=== PATIENT | female | born 1930 | race Caucasian/White ===

== ENCOUNTER 2017-07-26 14:08 | Emergency (ER) | payer OTHER ==
[~2017-07-26] VITALS: Ht 162.6 cm; Wt 72.6 kg
[~2017-07-26 14:08] MED LIST: ACEBUTCAFT PO; ACET325 PO; ACIDOPHILUS1 EAC1 PO; ALBU3IS INH; ALBU90OI61 INH; ALEN70 PO; AMLO5 PO; AMOX875 PO; AZIT250 PO; AZIT500 PO; Amox Tr-K Clv1 EAC2; Augmentin 875-1 EACH PO; BENZ100A PO; BUTASPCAF PO; Bactrim Ds Tab1 EACH PO; CEFP200 PO; CEFU500 PO; CITA20 PO; CLOT10 SS; CODBUTACEC PO; COLE1 PO; Citalopram HBr20 MG PO; Colace100 MG PO; DICY20 PO; DIPATR PO; DOCU100 PO; Esgic Tablet1 EACH PO; FAMC500 PO; FERR325 PO; FIORICET; FLUSAL2505 INH; FLUT110OIA IH; FLUT220OIA IH; FLUT220OIA INH; FURO40 PO; Furosemide40 MG PO; GUAI600T33 PO; HYDR1TAB94 PO; HYOS.125 SL; LISI20 PO; LONOX; LOPE2C PO; LORA10ER PO; MEGE40SU PO; MELO7.5 PO; MIRALAX119 GM PO; MULVITMIND PO; MULVITMINF PO; NADO40 PO; NADOLOL; NADOLOL PO; NAPR375 PO; NAPR500 PO; NITR100CA PO; Naproxen500 MG PO; Non-Aspirin Ex500 MG PO; Norco 5-325 Ta1 EACH PO; OMEP20ER PO; OMEP40CA12 PO; ONDA4ODT MM; ONDA8 PO; OXYB5 PO; OXYB5ER PO; POTA20PAC PO; POTCHL20ER PO; PRED10 PO; PRED20 PO; Prilosec Otc20 MG PO; ROBITUSSIN DM PO; SIMV10 PO; SPIR25 PO; SULTRIDS PO; TIOT18 INH; TRAM50 PO; TRAZ100 PO; TRAZ150T57 PO; TUDORZA PRESSAIR INH; Toviaz4 MG PO; Toviaz8 MG PO; VITAMIN D2000 UNIT PO; XARELTO15 MG PO; Zofran Odt4 MG PO
[2017-07-26 14:45] LABS: Source, Urine Clean Catch
[2017-07-26 14:54] LABS: Bilirubin, Urine Neg (Neg); Blood, Urine 1+ (Neg); Glucose Qualitative, Urine Neg (Neg); Ketones, Urine Neg (Neg); Leukocyte Esterase, Urine 3+ (Neg); Nitrite, Urine Neg (Neg); Protein, Urine Neg (Neg); Urobilinogen, Urine NORM (Normal)
[2017-07-26 15:22] LABS: Appearance, Urine Hazy (Clear); Color, Urine Yellow (P-Yellow)
[2017-07-26 15:23] LABS: Transitional Epithelial Cells Few /hpf (0-Rare); White Blood Cells, Urine 50-100 /hpf (0-5)
[2017-07-26 15:24] LABS: Bacteria Mod /hpf; Red Blood Cells, Urine Not Seen /hpf (0-2); Squamous Epithelial Cells Few /hpf (Few)
[2017-07-26 15:44] LABS: BASOPHILS ABSOLUTE AUTO 0.03 K/mm3 (0.00-0.23); BASOPHILS PERCENT AUTO 0 % (0-2); EOSINOPHILS ABSOLUTE AUTO 0.24 K/mm3 (0.00-0.68); EOSINOPHILS PERCENT AUTO 2 % (0-6); Hematocrit 41.8 % (33.0-51.0); Hemoglobin 12.8 g/dL (11.5-16.0); IMMATURE GRAN ABSOLUTE AUTO 0.03 K/mm3 (0.00-0.10); IMMATURE GRAN PERCENT AUTO 0 % (0-1); LYMPHOCYTES PERCENT AUTO 7 % (21-46); MONOCYTES ABSOLUTE AUTO 0.94 K/mm3 (0.16-1.47); MONOCYTES PERCENT AUTO 7 % (4-13); Mean Corpuscular HGB 29.9 pg (26.0-34.0); Mean Corpuscular HGB Conc 30.6 g/dL (31.5-36.5); Mean Corpuscular Volume 98 fL (80-100); NEUTROPHILS ABSOLUTE AUTO 11.24 K/mm3 (1.96-9.15); NEUTROPHILS PERCENT AUTO 83 % (41-73); Platelet Count 303 K/mm3 (150-400); RDW Coefficient Variation 14.8 % (11.7-14.2); RDW Standard Deviation 52.4 fL (35.1-46.3); Red Blood Cell Count 4.28 M/mm3 (3.80-5.20); White Blood Cell Count 13.48 K/mm3 (4.00-11.30)
[2017-07-26 16:06] LABS: Albumin, Blood 3.1 g/dL (3.4-5.0); Albumin/Globulin Ratio 0.8 (0.8-1.8); Bilirubin, Total 0.4 mg/dL (0.1-1.0); Bun/Creatinine Ratio 12.3 (12.0-20.0); Calcium, Blood 9.9 mg/dL (8.5-10.1); Creatinine, Blood 1.14 mg/dL (0.40-1.00); Globulin, Blood 3.9 g/dL (2.2-4.0); Potassium, Blood 4.1 mmol/L (3.5-5.5)
[2017-07-26] MEDS ORDERED: Pantoprazole So40 MG PO (16:23)
[2017-07-26] MEDS ORDERED: VITAMIN D32000 UNIT PO (16:23)
[2017-07-26] MEDS ORDERED: Bactrim Ds Tab1 EACH PO (17:24)
[2017-11-21] MEDS ORDERED: PENVK500 PO (09:29)
== END 2017-07-26 17:43 | disposition home or self-care (01) ==
LOC: ER 14:08
PROVIDERS: Emergency Medicine
DX: N39.0 Urinary tract infection, site not specified (principal); K52.9 Noninfective gastroenteritis and colitis, unspecified; I11.0 Hypertensive heart disease with heart failure; I50.9 Heart failure, unspecified; F32.9 Major depressive disorder, single episode, unspecified; K21.9 Gastro-esophageal reflux disease without esophagitis; J44.9 Chronic obstructive pulmonary disease, unspecified; G43.909 Migraine, unspecified, not intractable, without status migrainosus; Z90.49 Acquired absence of other specified parts of digestive tract; Z79.899 Other long term (current) drug therapy; Z79.891 Long term (current) use of opiate analgesic; F17.200 Nicotine dependence, unspecified, uncomplicated
CPT/HCPCS: 36415; 74176; 80053; 81001; 83690; 85025; 93005; 93010; 96365; 99284; J0696; J7030

== ENCOUNTER 2017-08-01 09:22 | Emergency (ER) | payer OTHER ==
[~2017-08-01] VITALS: Ht 152.4 cm; Wt 68.0 kg
[~2017-08-01 09:22] MED LIST changes: +Pantoprazole So40 MG PO; +VITAMIN D32000 UNIT PO
[2017-08-01 09:55] LABS: Source, Urine Clean Catch
[2017-08-01 10:01] LABS: BASOPHILS ABSOLUTE AUTO 0.02 K/mm3 (0.00-0.23); BASOPHILS PERCENT AUTO 0 % (0-2); EOSINOPHILS ABSOLUTE AUTO 0.01 K/mm3 (0.00-0.68); EOSINOPHILS PERCENT AUTO 0 % (0-6); Hematocrit 38.7 % (33.0-51.0); Hemoglobin 12.4 g/dL (11.5-16.0); IMMATURE GRAN ABSOLUTE AUTO 0.02 K/mm3 (0.00-0.10); IMMATURE GRAN PERCENT AUTO 0 % (0-1); LYMPHOCYTES ABSOLUTE AUTO 0.91 K/mm3 (0.84-5.20); LYMPHOCYTES PERCENT AUTO 17 % (21-46); MONOCYTES ABSOLUTE AUTO 0.76 K/mm3 (0.16-1.47); MONOCYTES PERCENT AUTO 14 % (4-13); Mean Corpuscular HGB 29.8 pg (26.0-34.0); Mean Platelet Volume 11.1 fL (9.1-12.4); NEUTROPHILS ABSOLUTE AUTO 3.73 K/mm3 (1.96-9.15); NEUTROPHILS PERCENT AUTO 68 % (41-73); Platelet Count 242 K/mm3 (150-400); RDW Standard Deviation 50.9 fL (35.1-46.3); Red Blood Cell Count 4.16 M/mm3 (3.80-5.20); White Blood Cell Count 5.45 K/mm3 (4.00-11.30)
[2017-08-01 10:04] LABS: Mean Corpuscular Volume 93 fL (80-100)
[2017-08-01 10:06] LABS: Bilirubin, Urine Neg (Neg); Blood, Urine 1+ (Neg); Glucose Qualitative, Urine Neg (Neg); Ketones, Urine Neg (Neg); Leukocyte Esterase, Urine Neg (Neg); Nitrite, Urine Neg (Neg); Protein, Urine Neg (Neg); Urobilinogen, Urine NORM (Normal)
[2017-08-01 10:09] LABS: Appearance, Urine Clear (Clear); Color, Urine Yellow (P-Yellow)
[2017-08-01 10:12] LABS: Bacteria Not Seen /hpf; Red Blood Cells, Urine 0-2 /hpf (0-2); Squamous Epithelial Cells Not Seen /hpf (Few); White Blood Cells, Urine Not Seen /hpf (0-5)
[2017-08-01 10:20] LABS: Alanine Aminotransfer (ALT/SGP 25 U/L (12-78); Albumin/Globulin Ratio 0.8 (0.8-1.8); Alk Phos 124 U/L (50-136); Anion Gap 7 mmol/L (6-16); Aspartate Aminotrans (AST/SGOT 47 U/L (12-37); Bilirubin, Total 0.1 mg/dL (0.1-1.0); Blood Urea Nitrogen 19 mg/dL (8-24); Bun/Creatinine Ratio 12.2 (12.0-20.0); CO2, Blood 27 mmol/L (21-32); Calcium, Blood 8.6 mg/dL (8.5-10.1); Chloride, Blood 98 mmol/L (98-108); Creatinine, Blood 1.56 mg/dL (0.40-1.00); Globulin, Blood 3.8 g/dL (2.2-4.0); Glomerular Filtration Rate 33 (60-); Glucose, Blood 95 mg/dL (70-99); Potassium, Blood 4.3 mmol/L (3.5-5.5); Sodium, Blood 132 mmol/L (136-145); Total Protein, Blood 6.8 g/dL (6.4-8.2); Troponin I <0.015 ng/mL (0.000-0.040)
[2017-08-01] MEDS ORDERED: Zofran4 MG PO (10:51)
[2017-11-21] MEDS ORDERED: PENVK500 PO (09:29)
== END 2017-08-01 11:46 | disposition home or self-care (01) ==
LOC: ER 09:22
PROVIDERS: Emergency Medicine
DX: R11.2 Nausea with vomiting, unspecified (principal); R53.1 Weakness; R53.83 Other fatigue; M79.7 Fibromyalgia; K21.9 Gastro-esophageal reflux disease without esophagitis; J44.9 Chronic obstructive pulmonary disease, unspecified; D64.9 Anemia, unspecified; I11.0 Hypertensive heart disease with heart failure; I50.9 Heart failure, unspecified; F32.9 Major depressive disorder, single episode, unspecified; F17.200 Nicotine dependence, unspecified, uncomplicated; Z90.49 Acquired absence of other specified parts of digestive tract
CPT/HCPCS: 36415; 71045; 80053; 81001; 83880; 84484; 85025; 93005; 93010; 96361; 96374; 99284; J2405; J7030; P9612

== ENCOUNTER 2017-08-29 16:07 | Inpatient (IN) | payer OTHER ==
[~2017-08-29] VITALS: Ht 157.5 cm; Wt 70.1 kg
[~2017-08-29 16:07] MED LIST changes: +Zofran4 MG PO
[2017-08-29 16:43] LABS: BASOPHILS ABSOLUTE AUTO 0.08 K/mm3 (0.00-0.23); BASOPHILS PERCENT AUTO 0 % (0-2); EOSINOPHILS ABSOLUTE AUTO 0.01 K/mm3 (0.00-0.68); EOSINOPHILS PERCENT AUTO 0 % (0-6); Hematocrit 37.3 % (33.0-51.0); Hemoglobin 11.7 g/dL (11.5-16.0); IMMATURE GRAN ABSOLUTE AUTO 0.38 K/mm3 (0.00-0.10); IMMATURE GRAN PERCENT AUTO 1 % (0-1); LYMPHOCYTES ABSOLUTE AUTO 1.21 K/mm3 (0.84-5.20); LYMPHOCYTES PERCENT AUTO 4 % (21-46); MONOCYTES ABSOLUTE AUTO 1.93 K/mm3 (0.16-1.47); MONOCYTES PERCENT AUTO 6 % (4-13); Mean Corpuscular HGB 29.7 pg (26.0-34.0); Mean Corpuscular HGB Conc 31.4 g/dL (31.5-36.5); Mean Corpuscular Volume 95 fL (80-100); Mean Platelet Volume 10.5 fL (9.1-12.4); NEUTROPHILS ABSOLUTE AUTO 27.76 K/mm3 (1.96-9.15); NEUTROPHILS PERCENT AUTO 88 % (41-73); Platelet Count 286 K/mm3 (150-400); RDW Coefficient Variation 14.7 % (11.7-14.2); RDW Standard Deviation 51.1 fL (35.1-46.3); Red Blood Cell Count 3.94 M/mm3 (3.80-5.20); White Blood Cell Count 31.37 K/mm3 (4.00-11.30)
[2017-08-29 17:07] LABS: Alanine Aminotransfer (ALT/SGP 23 U/L (12-78); Albumin, Blood 2.6 g/dL (3.4-5.0); Albumin/Globulin Ratio 0.6 (0.8-1.8); Alk Phos 193 U/L (50-136); Anion Gap 11 mmol/L (6-16); Aspartate Aminotrans (AST/SGOT 39 U/L (12-37); Bilirubin, Total 0.6 mg/dL (0.1-1.0); Blood Urea Nitrogen 14 mg/dL (8-24); Bun/Creatinine Ratio 12.2 (12.0-20.0); CO2, Blood 26 mmol/L (21-32); Calcium, Blood 9.7 mg/dL (8.5-10.1); Chloride, Blood 98 mmol/L (98-108); Creatinine, Blood 1.15 mg/dL (0.40-1.00); Globulin, Blood 4.5 g/dL (2.2-4.0); Glomerular Filtration Rate 47 (60-); Glucose, Blood 110 mg/dL (70-99); Sodium, Blood 135 mmol/L (136-145); Total Protein, Blood 7.1 g/dL (6.4-8.2); Troponin I <0.015 ng/mL (0.000-0.040)
[2017-08-29 17:47] LABS: PCO2 Arterial 40.8 mmHg (35-45); PO2 Arterial 65.6 mmHg (80-100); pH Blood Arterial 7.47 (7.35-7.45)
[2017-08-29 18:32] LABS: International Normalized Ratio 1.75; Prothrombin Time Results 18.5 Sec (9.7-11.5)
[2017-08-29 23:54] LABS: Source, Urine Clean Catch
[2017-08-29 23:58] LABS: Bilirubin, Urine Neg (Neg); Blood, Urine Neg (Neg); Glucose Qualitative, Urine Neg (Neg); Ketones, Urine Neg (Neg); Leukocyte Esterase, Urine 1+ (Neg); Nitrite, Urine Pos (Neg); Protein, Urine Neg (Neg); Specific Gravity, Urine 1.015 (1.003-1.022); Urobilinogen, Urine NORM (Normal)
[2017-08-30 00:15] LABS: Influenza A Negative (NEGATIVE); Influenza B Negative (NEGATIVE)
[2017-08-30 00:47] LABS: Appearance, Urine Hazy (Clear); Color, Urine Yellow (P-Yellow); Red Blood Cells, Urine 0-2 /hpf (0-2)
[2017-08-30 00:48] LABS: Bacteria Many /hpf; Squamous Epithelial Cells Rare /hpf (Few)
[2017-08-31 05:31] LABS: BASOPHILS ABSOLUTE AUTO 0.02 K/mm3 (0.00-0.23); BASOPHILS PERCENT AUTO 0 % (0-2); EOSINOPHILS PERCENT AUTO 0 % (0-6); Hematocrit 29.4 % (33.0-51.0); Hemoglobin 9.3 g/dL (11.5-16.0); IMMATURE GRAN ABSOLUTE AUTO 0.19 K/mm3 (0.00-0.10); IMMATURE GRAN PERCENT AUTO 1 % (0-1); LYMPHOCYTES ABSOLUTE AUTO 0.61 K/mm3 (0.84-5.20); LYMPHOCYTES PERCENT AUTO 4 % (21-46); MONOCYTES PERCENT AUTO 2 % (4-13); Mean Corpuscular HGB Conc 31.6 g/dL (31.5-36.5); Mean Corpuscular Volume 95 fL (80-100); Mean Platelet Volume 10.9 fL (9.1-12.4); NEUTROPHILS ABSOLUTE AUTO 15.74 K/mm3 (1.96-9.15); NEUTROPHILS PERCENT AUTO 93 % (41-73); Platelet Count 236 K/mm3 (150-400); RDW Coefficient Variation 15.2 % (11.7-14.2); RDW Standard Deviation 52.2 fL (35.1-46.3); White Blood Cell Count 16.86 K/mm3 (4.00-11.30)
[2017-08-31 05:59] LABS: Creatinine, Blood 1.05 mg/dL (0.40-1.00); Potassium, Blood 4.2 mmol/L (3.5-5.5)
[2017-08-31 06:00] LABS: Calcium, Blood 8.6 mg/dL (8.5-10.1)
[2017-09-02 05:23] LABS: BASOPHILS ABSOLUTE AUTO 0.04 K/mm3 (0.00-0.23); BASOPHILS PERCENT AUTO 0 % (0-2); EOSINOPHILS PERCENT AUTO 0 % (0-6); Hemoglobin 9.7 g/dL (11.5-16.0); IMMATURE GRAN ABSOLUTE AUTO 0.33 K/mm3 (0.00-0.10); IMMATURE GRAN PERCENT AUTO 3 % (0-1); LYMPHOCYTES ABSOLUTE AUTO 0.79 K/mm3 (0.84-5.20); LYMPHOCYTES PERCENT AUTO 7 % (21-46); MONOCYTES ABSOLUTE AUTO 1.06 K/mm3 (0.16-1.47); MONOCYTES PERCENT AUTO 9 % (4-13); Mean Corpuscular HGB 29.8 pg (26.0-34.0); Mean Corpuscular HGB Conc 30.3 g/dL (31.5-36.5); Mean Corpuscular Volume 99 fL (80-100); Mean Platelet Volume 10.7 fL (9.1-12.4); NEUTROPHILS PERCENT AUTO 82 % (41-73); Platelet Count 255 K/mm3 (150-400); RDW Coefficient Variation 15.4 % (11.7-14.2); RDW Standard Deviation 55.3 fL (35.1-46.3); Red Blood Cell Count 3.25 M/mm3 (3.80-5.20); White Blood Cell Count 12.22 K/mm3 (4.00-11.30)
[2017-09-02 06:04] LABS: Calcium, Blood 8.7 mg/dL (8.5-10.1); Potassium, Blood 3.9 mmol/L (3.5-5.5)
[2017-09-04 09:11] LABS: Hematocrit 34.6 % (33.0-51.0); Hemoglobin 10.8 g/dL (11.5-16.0); Mean Corpuscular HGB 29.8 pg (26.0-34.0); Mean Corpuscular HGB Conc 31.2 g/dL (31.5-36.5); Mean Platelet Volume 10.3 fL (9.1-12.4); NRBC ABSOLUTE 0.02 K/mm3 (0.00-0.02); NRBC Auto 0.1 /100 WBC (0.0-0.2); Platelet Count 392 K/mm3 (150-400); RDW Coefficient Variation 14.7 % (11.7-14.2); RDW Standard Deviation 51.2 fL (35.1-46.3); Red Blood Cell Count 3.63 M/mm3 (3.80-5.20); White Blood Cell Count 18.73 K/mm3 (4.00-11.30)
[2017-09-04 09:16] LABS: Mean Corpuscular Volume 95 fL (80-100)
[2017-09-04] MEDS ORDERED: ALBU90OI6 INH (11:48)
[2017-09-04] MEDS ORDERED: AZIT500 PO (12:15)
[2017-09-04] MEDS ORDERED: BAYER CHEWABLE81 MG PO (12:17)
[2017-09-04] MEDS ORDERED: BENZ100A PO (12:18)
[2017-09-04] MEDS ORDERED: CEFTIN PO (12:20)
[2017-09-04] MEDS ORDERED: BUDE.5 NEB (12:23)
[2017-09-04] MEDS ORDERED: PREDNISONE PO (12:29)
[2017-11-21] MEDS ORDERED: PENVK500 PO (09:29)
== END 2017-09-04 13:33 | disposition home or self-care (01) | DRG 871 ==
LOC: ER 16:07 → PCU 19:21
PROVIDERS: Family Medicine; Internal Medicine; Physician Assistant
PROC: 5A09457 Assistance with Respiratory Ventilation, 24-96 Consecutive Hours, Continuous Positive Airway Pressure (ICD-10-PCS; principal; 2017-09-01)
DX: A41.9 Sepsis, unspecified organism (principal); J18.9 Pneumonia, unspecified organism; J96.21 Acute and chronic respiratory failure with hypoxia; I13.0 Hypertensive heart and chronic kidney disease with heart failure and stage 1 through stage 4 chronic kidney disease, or unspecified chronic kidney disease; J44.0 Chronic obstructive pulmonary disease with (acute) lower respiratory infection; I50.32 Chronic diastolic (congestive) heart failure; Z99.81 Dependence on supplemental oxygen; J44.1 Chronic obstructive pulmonary disease with (acute) exacerbation; N18.3 Chronic kidney disease, stage 3 (moderate); D63.1 Anemia in chronic kidney disease; G89.4 Chronic pain syndrome; F41.9 Anxiety disorder, unspecified; F32.9 Major depressive disorder, single episode, unspecified; M79.7 Fibromyalgia; K21.9 Gastro-esophageal reflux disease without esophagitis; G47.33 Obstructive sleep apnea (adult) (pediatric); G43.909 Migraine, unspecified, not intractable, without status migrainosus; G44.89 Other headache syndrome; F17.200 Nicotine dependence, unspecified, uncomplicated; Z86.718 Personal history of other venous thrombosis and embolism; Z88.5 Allergy status to narcotic agent; Z88.8 Allergy status to other drugs, medicaments and biological substances; Z79.82 Long term (current) use of aspirin; Z79.01 Long term (current) use of anticoagulants; Z79.899 Other long term (current) drug therapy
CPT/HCPCS: 36415; 36600; 71045; 71046; 74176; 80048; 80053; 81001; 82803; 83605; 83880; 84484; 85025; 85027; 85610; 87040; 87804; 93005; 93010; 94640; 94660; 94667; 94762; 97110; 97163; 97530; 99285; G8978; G8979; J0456; J0696; J2060; J2930; J7030; J7050; Q2038

== ENCOUNTER 2017-11-18 13:53 | Emergency (ER) | payer OTHER ==
[~2017-11-18] VITALS: Ht 152.4 cm; Wt 73.0 kg
[~2017-11-18 13:53] MED LIST changes: +ALBU90OI6 INH; +BAYER CHEWABLE81 MG PO; +BUDE.5 NEB; +CEFTIN PO; +PREDNISONE PO
[2017-11-18 15:27] LABS: Source, Urine Voided
[2017-11-18 15:36] LABS: BASOPHILS PERCENT AUTO 1 % (0-2); EOSINOPHILS ABSOLUTE AUTO 0.52 K/mm3 (0.00-0.68); EOSINOPHILS PERCENT AUTO 6 % (0-6); Hematocrit 38.9 % (33.0-51.0); Hemoglobin 12.2 g/dL (11.5-16.0); IMMATURE GRAN ABSOLUTE AUTO 0.05 K/mm3 (0.00-0.10); IMMATURE GRAN PERCENT AUTO 1 % (0-1); LYMPHOCYTES ABSOLUTE AUTO 2.81 K/mm3 (0.84-5.20); LYMPHOCYTES PERCENT AUTO 32 % (21-46); MONOCYTES ABSOLUTE AUTO 0.86 K/mm3 (0.16-1.47); MONOCYTES PERCENT AUTO 10 % (4-13); Mean Corpuscular HGB 29.8 pg (26.0-34.0); Mean Corpuscular HGB Conc 31.4 g/dL (31.5-36.5); Mean Corpuscular Volume 95 fL (80-100); Mean Platelet Volume 10.7 fL (9.1-12.4); NEUTROPHILS ABSOLUTE AUTO 4.54 K/mm3 (1.96-9.15); NEUTROPHILS PERCENT AUTO 51 % (41-73); Platelet Count 335 K/mm3 (150-400); RDW Coefficient Variation 13.7 % (11.7-14.2); RDW Standard Deviation 47.5 fL (35.1-46.3); Red Blood Cell Count 4.09 M/mm3 (3.80-5.20); White Blood Cell Count 8.88 K/mm3 (4.00-11.30)
[2017-11-18 15:50] LABS: Appearance, Urine Hazy (Clear); Bilirubin, Urine Neg (Neg); Blood, Urine Neg (Neg); Color, Urine Yellow (P-Yellow); Glucose Qualitative, Urine Neg (Neg); Ketones, Urine Neg (Neg); Leukocyte Esterase, Urine 3+ (Neg); Nitrite, Urine Neg (Neg); Protein, Urine Neg (Neg); Specific Gravity, Urine 1.015 (1.003-1.022); Urobilinogen, Urine NORM (Normal)
[2017-11-18 15:56] LABS: Squamous Epithelial Cells Few /hpf (Few); White Blood Cells, Urine 25-50 /hpf (0-5)
[2017-11-18 15:57] LABS: Bacteria Mod /hpf
[2017-11-18 16:01] LABS: Albumin, Blood 3.5 g/dL (3.4-5.0); Albumin/Globulin Ratio 0.9 (0.8-1.8); Bilirubin, Total 0.2 mg/dL (0.1-1.0); Bun/Creatinine Ratio 21.6 (12.0-20.0); Calcium, Blood 10.5 mg/dL (8.5-10.1); Creatinine, Blood 1.85 mg/dL (0.40-1.00); Potassium, Blood 4.9 mmol/L (3.5-5.5); Total Protein, Blood 7.5 g/dL (6.4-8.2)
[2017-11-21] MEDS ORDERED: PENVK500 PO (09:29)
== END 2017-11-18 19:30 | disposition home or self-care (01) ==
LOC: ER 13:53
PROVIDERS: Nurse Practitioner Family
DX: N39.0 Urinary tract infection, site not specified (principal); E86.0 Dehydration; Z88.5 Allergy status to narcotic agent; Z88.8 Allergy status to other drugs, medicaments and biological substances; Z88.1 Allergy status to other antibiotic agents; Z79.899 Other long term (current) drug therapy; Z79.891 Long term (current) use of opiate analgesic; I11.0 Hypertensive heart disease with heart failure; I50.9 Heart failure, unspecified; G43.909 Migraine, unspecified, not intractable, without status migrainosus; F32.9 Major depressive disorder, single episode, unspecified; Z87.891 Personal history of nicotine dependence
CPT/HCPCS: 36415; 71046; 80053; 81001; 83880; 85025; 87086; 93005; 93010; 96361; 96374; 99283; J0696; J7030

== ENCOUNTER → 2018-03-03 | Outpatient (CLI) | payer OTHER ==
[~2018-03-03] MED LIST changes: +PENVK500 PO
== END | disposition home or self-care (01) ==
LOC: LAB SHORT 17:33 → LAB 17:33
DX: R41.82 Altered mental status, unspecified (principal)
CPT/HCPCS: 87086

== ENCOUNTER 2018-03-11 07:48 | Emergency (ER) | payer OTHER ==
[~2018-03-11] VITALS: Ht 152.4 cm; Wt 70.3 kg
[2018-03-11] MEDS ORDERED: PANT40 PO (08:26)
[2018-03-11] MEDS ORDERED: Spironolactone25 MG PO (08:27)
[2018-03-11] MEDS ORDERED: CRANBERRY250 MG PO (08:28)
[2018-03-11] MEDS ORDERED: LORATADINE10 MG PO (08:28)
[2018-03-11] MEDS ORDERED: FLUT1DIS5 INH (08:29)
[2018-03-11] MEDS ORDERED: MIRALAX17 GM PO (08:29)
[2018-03-11] MEDS ORDERED: ISOSORBIDE DINI PO (08:30)
[2018-03-11] MEDS ORDERED: GABA100 PO (08:30)
[2018-03-11] MEDS ORDERED: ATOR10 PO (08:30)
[2018-03-11] MEDS ORDERED: ONDA4 PO (08:32)
[2018-03-11 09:09] LABS: BASOPHILS ABSOLUTE AUTO 0.07 K/mm3 (0.00-0.23); BASOPHILS PERCENT AUTO 0 % (0-2); EOSINOPHILS ABSOLUTE AUTO 0.43 K/mm3 (0.00-0.68); EOSINOPHILS PERCENT AUTO 3 % (0-6); Hematocrit 38.8 % (33.0-51.0); IMMATURE GRAN ABSOLUTE AUTO 0.07 K/mm3 (0.00-0.10); IMMATURE GRAN PERCENT AUTO 0 % (0-1); LYMPHOCYTES ABSOLUTE AUTO 1.43 K/mm3 (0.84-5.20); LYMPHOCYTES PERCENT AUTO 9 % (21-46); MONOCYTES ABSOLUTE AUTO 1.12 K/mm3 (0.16-1.47); MONOCYTES PERCENT AUTO 7 % (4-13); Mean Corpuscular HGB 29.2 pg (26.0-34.0); Mean Corpuscular HGB Conc 30.9 g/dL (31.5-36.5); Mean Corpuscular Volume 94 fL (80-100); Mean Platelet Volume 11.1 fL (9.1-12.4); NEUTROPHILS ABSOLUTE AUTO 12.94 K/mm3 (1.96-9.15); NEUTROPHILS PERCENT AUTO 81 % (41-73); Platelet Count 234 K/mm3 (150-400); RDW Coefficient Variation 15.1 % (11.7-14.2); RDW Standard Deviation 52.8 fL (35.1-46.3); Red Blood Cell Count 4.11 M/mm3 (3.80-5.20); White Blood Cell Count 16.06 K/mm3 (4.00-11.30)
[2018-03-11 09:21] LABS: International Normalized Ratio 1.1; Prothrombin Time Results 11.3 Sec (9.7-11.5)
[2018-03-11 09:22] LABS: Anion Gap 6 mmol/L (6-16); Blood Urea Nitrogen 39 mg/dL (8-24); Bun/Creatinine Ratio 26.4 (12.0-20.0); CO2, Blood 26 mmol/L (21-32); Chloride, Blood 105 mmol/L (98-108); Creatinine, Blood 1.48 mg/dL (0.40-1.00); Glomerular Filtration Rate 35 (60-); Glucose, Blood 93 mg/dL (70-99); Potassium, Blood 5.1 mmol/L (3.5-5.5); Sodium, Blood 137 mmol/L (136-145); Troponin I <0.015 ng/mL (0.000-0.040)
[2018-03-11 09:57] LABS: Source, Urine Catheter
[2018-03-11 10:08] LABS: Bilirubin, Urine Neg (Neg); Blood, Urine Neg (Neg); Glucose Qualitative, Urine Neg (Neg); Ketones, Urine Neg (Neg); Leukocyte Esterase, Urine 1+ (Neg); Nitrite, Urine Neg (Neg); Protein, Urine Neg (Neg); Specific Gravity, Urine 1.015 (1.003-1.022); Urobilinogen, Urine NORM (Normal)
[2018-03-11 10:20] LABS: Appearance, Urine Hazy (Clear); Color, Urine Yellow (P-Yellow)
[2018-03-11 10:22] LABS: Bacteria Few /hpf; Mucus Light (0-Heavy); Red Blood Cells, Urine 0-2 /hpf (0-2); Squamous Epithelial Cells Few /hpf (Few)
[2018-03-11] MEDS ORDERED: Motion Sickness25 M1 PO (10:49)
[2018-03-11] MEDS ORDERED: Macrobid 100 M100 MG PO (10:49)
== END 2018-03-11 11:22 | disposition home or self-care (01) ==
LOC: ER 07:48
PROVIDERS: Emergency Medicine
DX: R42 Dizziness and giddiness (principal); N39.0 Urinary tract infection, site not specified; Z88.5 Allergy status to narcotic agent; Z88.8 Allergy status to other drugs, medicaments and biological substances; Z88.1 Allergy status to other antibiotic agents; Z79.899 Other long term (current) drug therapy; K21.9 Gastro-esophageal reflux disease without esophagitis; G43.909 Migraine, unspecified, not intractable, without status migrainosus; J44.9 Chronic obstructive pulmonary disease, unspecified; I11.0 Hypertensive heart disease with heart failure; I50.9 Heart failure, unspecified; F32.9 Major depressive disorder, single episode, unspecified; F17.210 Nicotine dependence, cigarettes, uncomplicated
CPT/HCPCS: 36415; 71046; 80048; 81001; 84484; 85025; 85610; 87077; 87086; 87186; 93005; 93010; 96360; 99285-25; J7030

== ENCOUNTER 2018-05-29 15:55 | Inpatient (IN) | payer OTHER ==
[~2018-05-29] VITALS: Ht 152.4 cm; Wt 74.2 kg
[~2018-05-29 15:55] MED LIST changes: +ATOR10 PO; +CRANBERRY250 MG PO; +FLUT1DIS5 INH; +GABA100 PO; +ISOSORBIDE DINI PO; +LORATADINE10 MG PO; +MIRALAX17 GM PO; +Macrobid 100 M100 MG PO; +Motion Sickness25 M1 PO; +ONDA4 PO; +PANT40 PO; +Spironolactone25 MG PO
[2018-05-29] MEDS ORDERED: MULTI VITAMIN1 EACH PO (16:30)
[2018-05-29] MEDS ORDERED: BIOTIN5000 MC1 PO (16:33)
[2018-05-29 16:53] LABS: BASOPHILS ABSOLUTE AUTO 0.06 K/mm3 (0.00-0.23); BASOPHILS PERCENT AUTO 0 % (0-2); EOSINOPHILS ABSOLUTE AUTO 0.11 K/mm3 (0.00-0.68); EOSINOPHILS PERCENT AUTO 0 % (0-6); Hematocrit 36.5 % (33.0-51.0); Hemoglobin 11.4 g/dL (11.5-16.0); IMMATURE GRAN ABSOLUTE AUTO 0.13 K/mm3 (0.00-0.10); IMMATURE GRAN PERCENT AUTO 1 % (0-1); LYMPHOCYTES ABSOLUTE AUTO 1.02 K/mm3 (0.84-5.20); LYMPHOCYTES PERCENT AUTO 4 % (21-46); MONOCYTES ABSOLUTE AUTO 1.68 K/mm3 (0.16-1.47); MONOCYTES PERCENT AUTO 7 % (4-13); Mean Corpuscular HGB 29.8 pg (26.0-34.0); Mean Corpuscular HGB Conc 31.2 g/dL (31.5-36.5); Mean Corpuscular Volume 96 fL (80-100); Mean Platelet Volume 11.1 fL (9.1-12.4); NEUTROPHILS ABSOLUTE AUTO 21.71 K/mm3 (1.96-9.15); NEUTROPHILS PERCENT AUTO 88 % (41-73); Platelet Count 240 K/mm3 (150-400); RDW Coefficient Variation 15.2 % (11.7-14.2); RDW Standard Deviation 53.9 fL (35.1-46.3); Red Blood Cell Count 3.82 M/mm3 (3.80-5.20); White Blood Cell Count 24.71 K/mm3 (4.00-11.30)
[2018-05-29 17:16] LABS: Albumin, Blood 2.7 g/dL (3.4-5.0); Albumin/Globulin Ratio 0.6 (0.8-1.8); Bilirubin, Total 0.3 mg/dL (0.1-1.0); Bun/Creatinine Ratio 17.9 (12.0-20.0); Calcium, Blood 9.1 mg/dL (8.5-10.1); Creatinine, Blood 1.45 mg/dL (0.40-1.00); Globulin, Blood 4.4 g/dL (2.2-4.0); Total Protein, Blood 7.1 g/dL (6.4-8.2)
[2018-05-29] MEDS ORDERED: FLUT1DIS5 INH (20:50)
[2018-05-29] MEDS ORDERED: Hair, Skin & N1 EACH PO (20:57)
[2018-05-29] MEDS ORDERED: Lomotil Tablet1 EACH PO (20:57)
[2018-05-30 05:22] LABS: BASOPHILS ABSOLUTE AUTO 0.02 K/mm3 (0.00-0.23); BASOPHILS PERCENT AUTO 0 % (0-2); EOSINOPHILS PERCENT AUTO 0 % (0-6); Hematocrit 36.9 % (33.0-51.0); Hemoglobin 11.2 g/dL (11.5-16.0); IMMATURE GRAN ABSOLUTE AUTO 0.16 K/mm3 (0.00-0.10); IMMATURE GRAN PERCENT AUTO 1 % (0-1); LYMPHOCYTES ABSOLUTE AUTO 0.93 K/mm3 (0.84-5.20); LYMPHOCYTES PERCENT AUTO 5 % (21-46); MONOCYTES ABSOLUTE AUTO 0.21 K/mm3 (0.16-1.47); MONOCYTES PERCENT AUTO 1 % (4-13); Mean Corpuscular HGB 29.4 pg (26.0-34.0); Mean Corpuscular HGB Conc 30.4 g/dL (31.5-36.5); Mean Corpuscular Volume 97 fL (80-100); NEUTROPHILS ABSOLUTE AUTO 17.83 K/mm3 (1.96-9.15); NEUTROPHILS PERCENT AUTO 93 % (41-73); Platelet Count 250 K/mm3 (150-400); RDW Coefficient Variation 15.3 % (11.7-14.2); RDW Standard Deviation 54.6 fL (35.1-46.3); Red Blood Cell Count 3.81 M/mm3 (3.80-5.20); White Blood Cell Count 19.15 K/mm3 (4.00-11.30)
[2018-05-30 06:07] LABS: Albumin, Blood 2.6 g/dL (3.4-5.0); Albumin/Globulin Ratio 0.6 (0.8-1.8); Bilirubin, Total 0.3 mg/dL (0.1-1.0); Calcium, Blood 9.7 mg/dL (8.5-10.1); Creatinine, Blood 1.45 mg/dL (0.40-1.00); Globulin, Blood 4.6 g/dL (2.2-4.0); Magnesium, Blood 1.9 mg/dL (1.6-2.4); Potassium, Blood 4.7 mmol/L (3.5-5.5); Total Protein, Blood 7.2 g/dL (6.4-8.2)
[2018-05-31] MEDS ORDERED: AZIT500 PO (11:11)
[2018-05-31] MEDS ORDERED: GUAI600T33 PO (11:15)
[2018-05-31] MEDS ORDERED: DELTASONE20 MG PO (11:17)
== END 2018-05-31 13:51 | disposition home or self-care (01) | DRG 189 ==
LOC: ER 15:55 → MEDS 18:38
PROVIDERS: Emergency Medicine; Internal Medicine
DX: J96.21 Acute and chronic respiratory failure with hypoxia (principal); J44.1 Chronic obstructive pulmonary disease with (acute) exacerbation; I50.32 Chronic diastolic (congestive) heart failure; I13.0 Hypertensive heart and chronic kidney disease with heart failure and stage 1 through stage 4 chronic kidney disease, or unspecified chronic kidney disease; K58.9 Irritable bowel syndrome, unspecified; Z99.81 Dependence on supplemental oxygen; K21.9 Gastro-esophageal reflux disease without esophagitis; G43.909 Migraine, unspecified, not intractable, without status migrainosus; M79.7 Fibromyalgia; G47.33 Obstructive sleep apnea (adult) (pediatric); D72.829 Elevated white blood cell count, unspecified; N18.3 Chronic kidney disease, stage 3 (moderate); F41.8 Other specified anxiety disorders
CPT/HCPCS: 36415; 71046; 80053; 83605; 83735; 84145; 85025; 90686; 93005; 93010; 93306; 94640; 94762; 96374; 96375; 99285-25; J2543; J2930

== ENCOUNTER 2018-07-10 02:39 | Inpatient (IN) | payer OTHER ==
[~2018-07-10] VITALS: Ht 152.4 cm; Wt 75.5 kg
[~2018-07-10 02:39] MED LIST changes: +BIOTIN5000 MC1 PO; +DELTASONE20 MG PO; +Hair, Skin & N1 EACH PO; +Lomotil Tablet1 EACH PO; +MULTI VITAMIN1 EACH PO
[2018-07-10] MEDS ORDERED: TIOT18 INH (02:49)
[2018-07-10 03:12] LABS: Source, Urine Catheter
[2018-07-10 03:19] LABS: Appearance, Urine Hazy (Clear); Bilirubin, Urine Neg (Neg); Blood, Urine 1+ (Neg); Color, Urine Yellow (P-Yellow); Glucose Qualitative, Urine Neg (Neg); Ketones, Urine Neg (Neg); Leukocyte Esterase, Urine 2+ (Neg); Nitrite, Urine Pos (Neg); Protein, Urine 1+ (Neg); Specific Gravity, Urine 1.015 (1.003-1.022); Urobilinogen, Urine NORM (Normal)
[2018-07-10 03:26] LABS: Bacteria Many /hpf; Red Blood Cells, Urine Rare /hpf (0-2); Squamous Epithelial Cells Not Seen /hpf (Few)
[2018-07-10 03:51] LABS: Hemoglobin 11.4 g/dL (11.5-16.0); Mean Corpuscular HGB 29.6 pg (26.0-34.0); Mean Corpuscular Volume 99 fL (80-100); Mean Platelet Volume 10.3 fL (9.1-12.4); Platelet Count 313 K/mm3 (150-400); RDW Coefficient Variation 16.8 % (11.7-14.2); Red Blood Cell Count 3.85 M/mm3 (3.80-5.20); White Blood Cell Count 33.38 K/mm3 (4.00-11.30)
[2018-07-10 04:00] LABS: Alanine Aminotransfer (ALT/SGP 25 U/L (12-78); Albumin, Blood 2.1 g/dL (3.4-5.0); Albumin/Globulin Ratio 0.4 (0.8-1.8); Alk Phos 280 U/L (50-136); Anion Gap 9 mmol/L (6-16); Aspartate Aminotrans (AST/SGOT 41 U/L (12-37); Bilirubin, Total 0.4 mg/dL (0.1-1.0); Blood Urea Nitrogen 25 mg/dL (8-24); Bun/Creatinine Ratio 16.2 (12.0-20.0); CO2, Blood 21 mmol/L (21-32); Calcium, Blood 8.3 mg/dL (8.5-10.1); Chloride, Blood 107 mmol/L (98-108); Creatinine, Blood 1.54 mg/dL (0.40-1.00); Globulin, Blood 4.8 g/dL (2.2-4.0); Glomerular Filtration Rate 34 (60-); Glucose, Blood 185 mg/dL (70-99); Magnesium, Blood 1.9 mg/dL (1.6-2.4); Potassium, Blood 5.6 mmol/L (3.5-5.5); Sodium, Blood 137 mmol/L (136-145); Total Protein, Blood 6.9 g/dL (6.4-8.2); Troponin I <0.015 ng/mL (0.000-0.040)
[2018-07-10 04:11] LABS: BAND PERCENT MAN 11 % (0-8); BASOPHILS PERCENT MAN 0 % (0-2); EOSINOPHILS PERCENT MAN 0 % (0-6); LYMPHOCYTES ABSOLUTE MAN 1.33 K/mm3 (0.84-5.20); LYMPHOCYTES PERCENT MAN 4 % (21-46); MONOCYTES PERCENT MAN 3 % (4-13); NEUTROPHILS ABSOLUTE MAN 31.04 K/mm3 (1.96-9.15); SEG NEUTROPHILS PERCENT MAN 82 % (41-73); TOTAL CELLS COUNTED 100
[2018-07-10 22:41] LABS: Anion Gap 5 mmol/L (6-16); Blood Urea Nitrogen 27 mg/dL (8-24); Bun/Creatinine Ratio 19.6 (12.0-20.0); CO2, Blood 26 mmol/L (21-32); Calcium, Blood 8.6 mg/dL (8.5-10.1); Chloride, Blood 108 mmol/L (98-108); Creatinine, Blood 1.38 mg/dL (0.40-1.00); Glomerular Filtration Rate 38 (60-); Glucose, Blood 154 mg/dL (70-99); Potassium, Blood 4.6 mmol/L (3.5-5.5); Sodium, Blood 139 mmol/L (136-145)
[2018-07-11 05:25] LABS: Hematocrit 35.6 % (33.0-51.0); Hemoglobin 10.5 g/dL (11.5-16.0); Mean Corpuscular HGB 29.7 pg (26.0-34.0); Mean Corpuscular HGB Conc 29.5 g/dL (31.5-36.5); Mean Corpuscular Volume 101 fL (80-100); Mean Platelet Volume 10.5 fL (9.1-12.4); Platelet Count 358 K/mm3 (150-400); RDW Coefficient Variation 16.9 % (11.7-14.2); Red Blood Cell Count 3.53 M/mm3 (3.80-5.20); White Blood Cell Count 22.92 K/mm3 (4.00-11.30)
[2018-07-11 05:51] LABS: Magnesium, Blood 2.3 mg/dL (1.6-2.4)
[2018-07-11 05:54] LABS: Alanine Aminotransfer (ALT/SGP 22 U/L (12-78); Albumin/Globulin Ratio 0.4 (0.8-1.8); Alk Phos 254 U/L (50-136); Anion Gap 6 mmol/L (6-16); Aspartate Aminotrans (AST/SGOT 27 U/L (12-37); Bilirubin, Total 0.3 mg/dL (0.1-1.0); Blood Urea Nitrogen 26 mg/dL (8-24); Bun/Creatinine Ratio 19.5 (12.0-20.0); CO2, Blood 25 mmol/L (21-32); Calcium, Blood 8.4 mg/dL (8.5-10.1); Chloride, Blood 110 mmol/L (98-108); Creatinine, Blood 1.33 mg/dL (0.40-1.00); Globulin, Blood 4.7 g/dL (2.2-4.0); Glomerular Filtration Rate 40 (60-); Glucose, Blood 120 mg/dL (70-99); Sodium, Blood 141 mmol/L (136-145); Total Protein, Blood 6.7 g/dL (6.4-8.2)
[2018-07-12 13:25] LABS: Hematocrit 34.6 % (33.0-51.0); Hemoglobin 10.4 g/dL (11.5-16.0)
[2018-07-12 14:14] LABS: Magnesium, Blood 2.1 mg/dL (1.6-2.4)
[2018-07-12 14:45] LABS: Anion Gap 7 mmol/L (6-16); Blood Urea Nitrogen 30 mg/dL (8-24); Bun/Creatinine Ratio 27.8 (12.0-20.0); CO2, Blood 23 mmol/L (21-32); Calcium, Blood 8.4 mg/dL (8.5-10.1); Chloride, Blood 108 mmol/L (98-108); Creatinine, Blood 1.08 mg/dL (0.40-1.00); Glomerular Filtration Rate 51 (60-); Glucose, Blood 139 mg/dL (70-99); Phosphorus, Blood 1.7 mg/dL (2.5-4.9); Potassium, Blood 4.5 mmol/L (3.5-5.5); Sodium, Blood 138 mmol/L (136-145)
[2018-07-13 04:55] LABS: Hematocrit 34.5 % (33.0-51.0); Hemoglobin 10.5 g/dL (11.5-16.0)
[2018-07-13 05:10] LABS: Albumin, Blood 2.1 g/dL (3.4-5.0); Anion Gap 6 mmol/L (6-16); Blood Urea Nitrogen 26 mg/dL (8-24); Bun/Creatinine Ratio 26.3 (12.0-20.0); CO2, Blood 26 mmol/L (21-32); Calcium, Blood 8.4 mg/dL (8.5-10.1); Chloride, Blood 108 mmol/L (98-108); Creatinine, Blood 0.99 mg/dL (0.40-1.00); Glomerular Filtration Rate 56 (60-); Glucose, Blood 80 mg/dL (70-99); Magnesium, Blood 2.2 mg/dL (1.6-2.4); Phosphorus, Blood 2.3 mg/dL (2.5-4.9); Potassium, Blood 4.6 mmol/L (3.5-5.5); Sodium, Blood 140 mmol/L (136-145)
[2018-07-13] MEDS ORDERED: CEPH500 PO (12:27)
[2018-07-13] MEDS ORDERED: Senna Plus Tab1 EACH PO (12:28)
[2018-07-13] MEDS ORDERED: GUAI600T33 PO (12:28)
[2018-07-13] MEDS ORDERED: K-Phos Origina500 MG PO (12:31)
[2018-07-13] MEDS ORDERED: DELTASONE20 MG PO (12:33)
[2018-07-13] MEDS ORDERED: ACIDOPHILUS1 EAC2 PO (12:35)
[2018-07-13] MEDS ORDERED: METO25ER PO (12:36)
== END 2018-07-13 13:56 | disposition home or self-care (01) | DRG 871 ==
LOC: ER 02:39 → MEDS 05:48
PROVIDERS: Emergency Medicine; Internal Medicine; Internal Medicine Nephrology
DX: A41.89 Other specified sepsis (principal); G93.41 Metabolic encephalopathy; N17.9 Acute kidney failure, unspecified; J96.11 Chronic respiratory failure with hypoxia; I13.0 Hypertensive heart and chronic kidney disease with heart failure and stage 1 through stage 4 chronic kidney disease, or unspecified chronic kidney disease; I50.32 Chronic diastolic (congestive) heart failure; E87.1 Hypo-osmolality and hyponatremia; N39.0 Urinary tract infection, site not specified; E86.0 Dehydration; E87.5 Hyperkalemia; J44.9 Chronic obstructive pulmonary disease, unspecified; E83.39 Other disorders of phosphorus metabolism; F01.50 Vascular dementia, unspecified severity, without behavioral disturbance, psychotic disturbance, mood disturbance, and anxiety; N18.3 Chronic kidney disease, stage 3 (moderate); D64.9 Anemia, unspecified; K21.9 Gastro-esophageal reflux disease without esophagitis; M79.7 Fibromyalgia; G47.33 Obstructive sleep apnea (adult) (pediatric); R32 Unspecified urinary incontinence; K58.9 Irritable bowel syndrome, unspecified; F41.9 Anxiety disorder, unspecified; Z66 Do not resuscitate; D72.829 Elevated white blood cell count, unspecified; I67.9 Cerebrovascular disease, unspecified; F17.210 Nicotine dependence, cigarettes, uncomplicated; Z79.899 Other long term (current) drug therapy; Z88.5 Allergy status to narcotic agent; Z88.1 Allergy status to other antibiotic agents; Z88.8 Allergy status to other drugs, medicaments and biological substances; Z86.718 Personal history of other venous thrombosis and embolism; Z87.01 Personal history of pneumonia (recurrent)
CPT/HCPCS: 36415; 70450; 71045; 71046; 76770; 80048; 80053; 80069; 81001; 82947; 83605; 83735; 83880; 84100; 84132; 84484; 85014; 85018; 85025; 85027; 87040; 87077; 87086; 87186; 93005; 93010; 94640; 94760; 96361; 96365; 99285-25; J0610; J0696; J1815; J7030; J7042; J7060; P9612

== ENCOUNTER 2018-09-16 09:56 | Inpatient (IN) | payer OTHER ==
[~2018-09-16] VITALS: Ht 152.4 cm; Wt 78.5 kg
[~2018-09-16 09:56] MED LIST changes: +CEPH500 PO; -CITA20 PO; -GABA100 PO; -ISOSORBIDE DINI PO; +K-Phos Origina500 MG PO; +METO25ER PO; -MIRALAX17 GM PO; -PANT40 PO; +Senna Plus Tab1 EACH PO; -Toviaz4 MG PO; -VITAMIN D32000 UNIT PO; -XARELTO15 MG PO
[2018-09-16] MEDS ORDERED: CITA20 PO (10:32)
[2018-09-16 11:26] LABS: Influenza A Negative (NEGATIVE); Influenza B Negative (NEGATIVE)
[2018-09-16 11:34] LABS: BASOPHILS ABSOLUTE AUTO 0.05 K/mm3 (0.00-0.23); BASOPHILS PERCENT AUTO 0 % (0-2); EOSINOPHILS ABSOLUTE AUTO 0.08 K/mm3 (0.00-0.68); EOSINOPHILS PERCENT AUTO 0 % (0-6); Hematocrit 37.4 % (33.0-51.0); IMMATURE GRAN ABSOLUTE AUTO 0.14 K/mm3 (0.00-0.10); IMMATURE GRAN PERCENT AUTO 1 % (0-1); LYMPHOCYTES ABSOLUTE AUTO 1.84 K/mm3 (0.84-5.20); LYMPHOCYTES PERCENT AUTO 9 % (21-46); MONOCYTES ABSOLUTE AUTO 1.95 K/mm3 (0.16-1.47); MONOCYTES PERCENT AUTO 10 % (4-13); Mean Corpuscular HGB 29.6 pg (26.0-34.0); Mean Corpuscular HGB Conc 29.4 g/dL (31.5-36.5); Mean Corpuscular Volume 101 fL (80-100); Mean Platelet Volume 10.1 fL (9.1-12.4); NEUTROPHILS ABSOLUTE AUTO 15.95 K/mm3 (1.96-9.15); NEUTROPHILS PERCENT AUTO 80 % (41-73); Platelet Count 474 K/mm3 (150-400); RDW Coefficient Variation 14.7 % (11.7-14.2); RDW Standard Deviation 55.6 fL (35.1-46.3); Red Blood Cell Count 3.71 M/mm3 (3.80-5.20); White Blood Cell Count 20.01 K/mm3 (4.00-11.30)
[2018-09-16 11:55] LABS: Troponin I <0.015 ng/mL (0.000-0.040)
[2018-09-16 12:00] LABS: Alanine Aminotransfer (ALT/SGP 17 U/L (12-78); Albumin, Blood 2.2 g/dL (3.4-5.0); Albumin/Globulin Ratio 0.5 (0.8-1.8); Alk Phos 279 U/L (50-136); Anion Gap 9 mmol/L (6-16); Aspartate Aminotrans (AST/SGOT 31 U/L (12-37); Bilirubin, Total 0.4 mg/dL (0.1-1.0); Blood Urea Nitrogen 18 mg/dL (8-24); Bun/Creatinine Ratio 14.3 (12.0-20.0); CO2, Blood 19 mmol/L (21-32); Calcium, Blood 8.4 mg/dL (8.5-10.1); Chloride, Blood 107 mmol/L (98-108); Creatinine, Blood 1.26 mg/dL (0.40-1.00); Globulin, Blood 4.8 g/dL (2.2-4.0); Glomerular Filtration Rate 43 (60-); Glucose, Blood 76 mg/dL (70-99); Potassium, Blood 4.8 mmol/L (3.5-5.5); Sodium, Blood 135 mmol/L (136-145)
[2018-09-16] MEDS ORDERED: **INCOMPLETE MED REC (12:19)
[2018-09-16] MEDS ORDERED: TRAM50 PO (12:29)
[2018-09-16] MEDS ORDERED: VITAMIN D32000 UNIT PO (12:30)
[2018-09-16] MEDS ORDERED: Citalopram HBr40 MG PO (12:31)
[2018-09-16] MEDS ORDERED: Toviaz4 MG PO (12:32)
[2018-09-16] MEDS ORDERED: FLUT1DIS5 INH (12:34)
[2018-09-16] MEDS ORDERED: FURO20 PO (12:35)
[2018-09-16] MEDS ORDERED: GABA100 PO (12:37)
[2018-09-16] MEDS ORDERED: ACIDOPHILUS1 EAC2 PO (12:39)
[2018-09-16] MEDS ORDERED: Isosorbide Mono30 MG PO (12:39)
[2018-09-16] MEDS ORDERED: METO50ER PO (12:41)
[2018-09-16] MEDS ORDERED: PANT40 PO (12:42)
[2018-09-16] MEDS ORDERED: POTCHL20ER PO (12:43)
[2018-09-16] MEDS ORDERED: MIRALAX17 GM PO (12:43)
[2018-09-16] MEDS ORDERED: XARELTO15 MG PO (12:44)
[2018-09-16] MEDS ORDERED: TIOT18 INH (12:45)
[2018-09-16] MEDS ORDERED: SPIR25 PO (12:47)
[2018-09-16] MEDS ORDERED: ALBU90OI61 INH (12:50)
[2018-09-16] MEDS ORDERED: Lomotil Tablet1 EACH PO (12:53)
--- NOTE | 2018-09-16 15:46 | NUR ---
Spiritual care visit conducted. Patient was lying in bed and alert when I entered patient's room. I introduced myself and patient welcomed me in. Patient shared with me about her recent health history, her family unit complications and about her . I listened empathically, explored patient's belief system, provided pastoral copunsel, provided companionship and provided prayer. Patient responded well and showed signs of restored sameer and an elevated mood.
--- NOTE | 2018-09-16 18:04 | NUR ---
ADMIT NOTE RECEIVED REPORT FORM HANNAH SHORT RN IN ED. PT TO ROOM VIA [facility] AT 1705, 4 PERSON TRANSFER ASSIST WITH SLIDER SHEET. PT ORIENTED TO ROOM AND CALL LIGHT. PT EDUCATED ON FALL RISK AND USING THE CALL LIGHT BEFORE GETTING UP. PT A&O TO PERSON AND PLACE, UNSURE OF YEAR/TIME AND EVENT. PT ATTEMPTS TO USE HUMOR TO HIDE CONFUSED. PT STATES SHE IS HERE BECAUSE GRANDCHILDREN/CHILDREN TOLD HER TO COME IN. REPORTS FROM ED STATES PT INCREASED SOB. PT SOB WITH EXERTION/MOVEMENT IN BED, >90% ON 1.5L O2 VIA NC, LS COARSE T/O DIM IN BASES. PT USES HOME OXYGEN AT 2.5 L VIA NC AT NIGHT. REPORTS PRODUCTIVE COUGH WITH YELLOW MUCUS. PT REPORTS PAIN T/O AND HEADACHE (CHRONIC MIGRAINE), WILL MEDICATE PER EMAR. PT RESTING IN BED, USING BEDPAN. USES BSC WITH CAREGIVERS AT HOME. REFUSES TO USE WALKER AT HOME, SINCE HER RECENT FALL. PT RECEIVING IV AND PO ANTIBIOTICS. ELEVATED HR AND RR NOTED, OTHER VSS. NO OTHER ACUTE CHANGES NOTED DURING SHIFT. WILL CONTINUE TO MONITOR UNTIL REPORT GIVEN TO ONCOMING RN.
--- NOTE | 2018-09-17 05:17 | NUR ---
SHIFT SUMMARY PT SLEPT WELL T/O NIGHT. AOX2, STATES WE ARE IN "[place], [place]" WHEN ASKED & THEN CORRECTS SELF "OH NO WE AREN'T THERE, WE ARE IN [place]." PT CONFUSED OF WHY SHE'S @THE HOSPITAL & WHAT THE EXACT DATE IS, DOES KNOW IT IS AUGUST. PT CAN ANSWER YES/NO QUESTIONS APPROPRIATELY & FOLLOW DIRECTIONS. VSS. DENIES N/V. REPORTS SOB W/ANY EXERTION, SPO2 >90% ON 2.5L O2 @NIGHT (PTS BASELINE). LUNGS SOUND DIMINISHED T/O, PT HAS A PRODUCTIVE COUGH. PT REPORTS "MY HEAD FEELS LIKE IT IS EXPLODING," & STATES SHE HAS 8/10 PAIN DUE TO HEADACHE, MEDICATED W/ULTRAM PER ORDERS. PT INCONTINENT OF URINE & CHANGED PRN. CALL LIGHT IS IN REACH, PT FORGETS TO USE IT & CALLS OUT WHEN SHE NEEDS HELP. I WCTM PT UNTIL DAY SHIFT RN ASSUMES CARE.
[2018-09-17 05:32] LABS: BASOPHILS ABSOLUTE AUTO 0.04 K/mm3 (0.00-0.23); BASOPHILS PERCENT AUTO 0 % (0-2); EOSINOPHILS ABSOLUTE AUTO 0.03 K/mm3 (0.00-0.68); EOSINOPHILS PERCENT AUTO 0 % (0-6); Hematocrit 32.2 % (33.0-51.0); Hemoglobin 9.8 g/dL (11.5-16.0); IMMATURE GRAN ABSOLUTE AUTO 0.09 K/mm3 (0.00-0.10); IMMATURE GRAN PERCENT AUTO 1 % (0-1); LYMPHOCYTES ABSOLUTE AUTO 0.83 K/mm3 (0.84-5.20); LYMPHOCYTES PERCENT AUTO 5 % (21-46); MONOCYTES ABSOLUTE AUTO 1.54 K/mm3 (0.16-1.47); MONOCYTES PERCENT AUTO 9 % (4-13); Mean Corpuscular HGB 29.4 pg (26.0-34.0); Mean Corpuscular HGB Conc 30.4 g/dL (31.5-36.5); Mean Platelet Volume 10.2 fL (9.1-12.4); NEUTROPHILS ABSOLUTE AUTO 15.38 K/mm3 (1.96-9.15); NEUTROPHILS PERCENT AUTO 86 % (41-73); Platelet Count 402 K/mm3 (150-400); RDW Coefficient Variation 14.9 % (11.7-14.2); RDW Standard Deviation 53.3 fL (35.1-46.3); Red Blood Cell Count 3.33 M/mm3 (3.80-5.20); White Blood Cell Count 17.91 K/mm3 (4.00-11.30)
[2018-09-17 05:36] LABS: Mean Corpuscular Volume 97 fL (80-100)
[2018-09-17 06:28] LABS: Bun/Creatinine Ratio 12.6 (12.0-20.0); Creatinine, Blood 1.27 mg/dL (0.40-1.00)
[2018-09-17 12:28] LABS: Percent Saturation 8.4 % (15.0-50.0)
--- NOTE | 2018-09-17 19:08 | NUR ---
SHIFT SUMMARY: NO ACUTE CHANGES TO REPORT THIS SHIFT. PT A& X2; HX DEMENTIA; CALM AND COOPERATIVE WITH CARE. 2.5L VIA HUMIDIFIED NC; PT USES 2.5L AT NOC AT HOME. TELE IN PLACE; ST @ 106 PER MAILING CLERK DURING MORNING ASSESSMENT. BIALATERAL PNA; IV & PO ABX CONTINUING. PO MEDS WHOLE IN APPLESAUCE/PUDDING. REPORT GIVEN TO ONCOMING RN.
--- NOTE | 2018-09-17 23:29 | NUR ---
pt elderly and has poor memory. she has suspected pneumonia dry hacking cough and co of not being able to breathe on 2.5 l nc. rt called and prn administered with mild helpful effect. dry hacking cough despite tessalone 100 mg po given. acute anxiety PT unable to state is she takes ativan as per med rec. says ativan 2 mg po bid for anxiety and trazodone may have been weaned off. called DR ENGLISH and ordered obtained for robitussin 10 mg po q 4 hrs prn cough. Melatonin 5 mg po Q HS PRN. PT lives in [place] on [facility] property. Will notify day RN to get home meds clarified and order appropriate rx. nurse notify DR huber.
--- NOTE | 2018-09-18 01:31 | NUR ---
PT says she feels much better after robitussin melatonin and 0.5 tab of norco 5/325 mg tab. she is sleeping with hob up oxygen 3.5 l nc and after breating tx and rx less short of breath.
--- NOTE | 2018-09-18 05:15 | NUR ---
PT has noisy sleep with some verbalizations, moaning, noisy respirations. decreased cough after robitussion and decreased insomnia after melatonin and pain med half of norco 5/325 mg tab. declined out of bed using bedpan. o2 sat 99% on 2.5 l nc.
--- NOTE | 2018-09-18 18:43 | NUR ---
SHIFT SUMAMRY: NO ACUTE CHANGES TO REPORT THIS SHIFT. PT HX DEMENTIA; A&O X2; IRRITABLE; COOPERATIVE WITH CARE. MEDICATED FOR PAIN PER EMAR. TELE IN PLACE; SR @ 96 PER MEDICINE WORKER DURING SHIFT ASSEMENT. IV & PO ABX CONTINUING. WCTM.
--- NOTE | 2018-09-19 03:40 | NUR ---
87 year old Female with pneumonia and acute pain continues on antibiotics to treat. PT has acute on chronic pain in neck head and back. PT medicated with 0.5 tab norco 5/325 mg po x 2 and ultram 50 mg x 1 were helpful for pain. Melatonin helpful for sleep when given with pain relievers. neurontin 100 mg po also helpful tid prn. PT using 7 mg nicotine patch for tobacco addiction. discussed need for smoking cessation. PT says her DTR lives her and PT has daily caregivers. Had period of dyspnea when she has removed oxygen. uses oxygen 2.5 l nc at night baseline. nonproductive dry hacking cough relieved by tessalon perle and robitussin dm. PT drank shake made of ensure and icecream x 2 100%. incontinent of urine. PT OT eval and treat ordered. PT on fall precautions and has not been out of bed due to pain and weakness.
[2018-09-19 05:07] LABS: Hematocrit 32.2 % (33.0-51.0); Hemoglobin 9.8 g/dL (11.5-16.0); Mean Corpuscular HGB 29.3 pg (26.0-34.0); Mean Corpuscular HGB Conc 30.4 g/dL (31.5-36.5); Mean Corpuscular Volume 96 fL (80-100); Mean Platelet Volume 9.7 fL (9.1-12.4); Platelet Count 506 K/mm3 (150-400); RDW Standard Deviation 53.3 fL (35.1-46.3); Red Blood Cell Count 3.35 M/mm3 (3.80-5.20); White Blood Cell Count 12.17 K/mm3 (4.00-11.30)
[2018-09-19 05:47] LABS: Albumin, Blood 1.9 g/dL (3.4-5.0); Anion Gap 6 mmol/L (6-16); Blood Urea Nitrogen 20 mg/dL (8-24); Bun/Creatinine Ratio 16.8 (12.0-20.0); CO2, Blood 22 mmol/L (21-32); Calcium, Blood 8.8 mg/dL (8.5-10.1); Chloride, Blood 110 mmol/L (98-108); Creatinine, Blood 1.19 mg/dL (0.40-1.00); Glomerular Filtration Rate 46 (60-); Glucose, Blood 113 mg/dL (70-99); Potassium, Blood 5.7 mmol/L (3.5-5.5); Sodium, Blood 138 mmol/L (136-145)
--- NOTE | 2018-09-19 18:01 | NUR ---
SHIFT SUMMARY: NO ACUTE CHANGES TO REPORT THIS SHIFT. PT A&O X2; CONFUSED; HX DEMENTIA. TELE D/C'd THIS SHIFT. MEDICATED FOR PAIN PER EMAR. PT UP WITH 1-ASSIST c FWW & GAIT BELT, PER PHYSICAL THERAPY. NO IV ACCESS NEEDED. PO ABX CONTINUING. WCTM.
--- NOTE | 2018-09-20 04:03 | NUR ---
continues to improve, pain bettere controlled. up oob with 2 assist fww gb. o2 2.5 l nc, sputum sample has been sent.
[2018-09-20 05:32] LABS: Hematocrit 34.4 % (33.0-51.0); Hemoglobin 10.4 g/dL (11.5-16.0); Mean Corpuscular HGB 28.7 pg (26.0-34.0); Mean Corpuscular HGB Conc 30.2 g/dL (31.5-36.5); Mean Corpuscular Volume 95 fL (80-100); Mean Platelet Volume 9.4 fL (9.1-12.4); Platelet Count 572 K/mm3 (150-400); RDW Coefficient Variation 14.9 % (11.7-14.2); RDW Standard Deviation 52.1 fL (35.1-46.3); Red Blood Cell Count 3.62 M/mm3 (3.80-5.20); White Blood Cell Count 12.77 K/mm3 (4.00-11.30)
[2018-09-20 06:10] LABS: Anion Gap 4 mmol/L (6-16); Blood Urea Nitrogen 27 mg/dL (8-24); Bun/Creatinine Ratio 24.3 (12.0-20.0); CO2, Blood 27 mmol/L (21-32); Calcium, Blood 10.2 mg/dL (8.5-10.1); Chloride, Blood 104 mmol/L (98-108); Creatinine, Blood 1.11 mg/dL (0.40-1.00); Glomerular Filtration Rate 46 (60-); Glucose, Blood 107 mg/dL (70-99); Phosphorus, Blood 3.6 mg/dL (2.5-4.9); Sodium, Blood 135 mmol/L (136-145)
[2018-09-20 06:12] LABS: Potassium, Blood 6.2 mmol/L (3.5-5.5)
--- NOTE | 2018-09-20 07:30 | NUR ---
dr Da Silva notified of critical k level 6.1. wrote rx to treat
[2018-09-20 14:33] LABS: Bun/Creatinine Ratio 25.7 (12.0-20.0); Calcium, Blood 10.6 mg/dL (8.5-10.1); Creatinine, Blood 1.13 mg/dL (0.40-1.00); Potassium, Blood 5.6 mmol/L (3.5-5.5)
--- NOTE | 2018-09-20 16:59 | NUR ---
SHIFT SUMMARY PT AXO, THOUGH FORGETFUL AND AGGITATED AT TIMES. COMPLAINS OF CHRONIC NECK PAIN, MEDICATED PER EMAR. NURSE NOTIFIED DR DAY AT 1645 THAT PT'S PAIN WAS PERSISTING, DR AWARE, NO NEW ORDERS. VSS. POTASSIUM AT 5.6 AFTER INTERVENTIONS, SEE LABS. IV PATENT AND SALINE LOCKED. PT UP WITH HEAVY 2 ASSIST WITH FWW AND GB. MEDS WHOLE WITH APPLESAUCE. BED IN LOW POSITION, CALL LIGHT WITHIN REACH. PT REFUSED TO GET UP TO CHAIR THIS SHIFT.
[2018-09-21 05:32] LABS: Hematocrit 37.9 % (33.0-51.0); Hemoglobin 11.4 g/dL (11.5-16.0); Mean Corpuscular HGB 29.2 pg (26.0-34.0); Mean Corpuscular HGB Conc 30.1 g/dL (31.5-36.5); Mean Corpuscular Volume 97 fL (80-100); Platelet Count 549 K/mm3 (150-400); RDW Coefficient Variation 15.3 % (11.7-14.2); RDW Standard Deviation 54.4 fL (35.1-46.3); Red Blood Cell Count 3.91 M/mm3 (3.80-5.20); White Blood Cell Count 16.13 K/mm3 (4.00-11.30)
[2018-09-21 05:46] LABS: Albumin, Blood 2.1 g/dL (3.4-5.0); Anion Gap 8 mmol/L (6-16); Blood Urea Nitrogen 27 mg/dL (8-24); Bun/Creatinine Ratio 22.5 (12.0-20.0); CO2, Blood 21 mmol/L (21-32); Calcium, Blood 9.9 mg/dL (8.5-10.1); Chloride, Blood 104 mmol/L (98-108); Glomerular Filtration Rate 45 (60-); Glucose, Blood 83 mg/dL (70-99); Phosphorus, Blood 3.7 mg/dL (2.5-4.9); Potassium, Blood 4.9 mmol/L (3.5-5.5); Sodium, Blood 133 mmol/L (136-145)
--- NOTE | 2018-09-21 08:16 | NUR ---
SHIFT SUMMARY: NO ACUTE CHANGES TO REPORT THIS SHIFT. PT A&O X2; IRRITABLE; COOPERATIVE WITH CARE. NO C/O PAIN THIS SHIFT; MEDICATED FOR COUGH PER EMAR.PT WEAK; UP WITH 1-ASSIST c FWW & GAIT BELT TO BSC. PO ABX CONTINUING. REPORT GIVEN TO ONCOMING RN.
--- NOTE | 2018-09-21 11:46 | NUR ---
Patient was sitting in a chair in patient's room when I entered the room. I introduced myself and reminded patient that I visited her in the E.D. and she welcomed me to come in and sit down. Patient shared about her frustrations about her health struggles and her family unit complications. I listened empathically, provided companionship, quoted inspirational Bible verses and provided prayer. Patient responded well to all interventions and showed signs of restored sameer. Patient expressed gratitude for my visit.
--- NOTE | 2018-09-21 14:42 | NUR ---
PERMISSION GIVEN BY PATIENT TO TALK TO GRANDDAUGHTER SARY.
--- NOTE | 2018-09-21 17:37 | NUR ---
PATIENT ALERT. IRRITABLE. MEDICATED FOR CHRONIC NECK PAIN AND WAS ABLE TO SLEEP AFTER, BUT WHEN AWAKE STS IT DO NOT WORK. COOPERATIVE WITH CARE. TREMORS. C/O PAIN AT IV SITE WHEN FLUSHED, BUT REFUSED TO HAVE IT CHANGED TO ANOTHER SITE. NO SWELLING OR LEAKAGE NOTED. WILL CONTINUE TO MONITOR.
--- NOTE | 2018-09-22 03:41 | NUR ---
Pt alert and oriented x 3, bed alrm on for safety. Pts lung sounds are coarse throughout with occasional non productive cough at bedtime (none rest of night) while wearing O2 at 2l/m per nasal cannula. Pt has scattered bruising noted bilateral hands/arms. Pt felt relief with 1/2 tab Keymar 5/325mg. Pt slept well throughout evening. Pt did required two standby assist to stand/pivot while using BSC.
[2018-09-22 05:47] LABS: BASOPHILS ABSOLUTE AUTO 0.08 K/mm3 (0.00-0.23); BASOPHILS PERCENT AUTO 1 % (0-2); EOSINOPHILS ABSOLUTE AUTO 0.19 K/mm3 (0.00-0.68); EOSINOPHILS PERCENT AUTO 2 % (0-6); Hematocrit 32.8 % (33.0-51.0); Hemoglobin 10.2 g/dL (11.5-16.0); IMMATURE GRAN ABSOLUTE AUTO 0.45 K/mm3 (0.00-0.10); IMMATURE GRAN PERCENT AUTO 4 % (0-1); LYMPHOCYTES PERCENT AUTO 17 % (21-46); MONOCYTES ABSOLUTE AUTO 0.93 K/mm3 (0.16-1.47); MONOCYTES PERCENT AUTO 8 % (4-13); Mean Corpuscular HGB 29.1 pg (26.0-34.0); Mean Corpuscular HGB Conc 31.1 g/dL (31.5-36.5); Mean Platelet Volume 9.4 fL (9.1-12.4); NEUTROPHILS PERCENT AUTO 68 % (41-73); Platelet Count 503 K/mm3 (150-400); RDW Coefficient Variation 14.8 % (11.7-14.2); White Blood Cell Count 11.25 K/mm3 (4.00-11.30)
--- NOTE | 2018-09-22 05:54 | NUR ---
SUMMARY: A/OX3 BUT OCCASIONALLY FORGETFUL TO TIME/DATE AND CALLS INTO HALLS FOR FAMILY MEMBERS. PT REORIENTS W/REMINDERS AND USED CALL LIGHT APPROPRIATELY T/O NOCTE. SHE IS COOPERATIVE W/CARE AND GRATEFUL FOR STAFF ASSIST BUT CAN BECOME IRRITABLE DURING ADL'S. PT IS 2 PERSON SBA W/FWW TO CHAIR/BSC. SHE HAD A SMALL BM THIS SHIFT AND VOIDED A FEW TIMES. OCCASIONAL URGE INCONTINENCE NOTED W/PULLUPS CHANGED PRN. PT C/O NECK, SHOULDER AND BACK PAIN W/HALF TABLET NORCO AND ULTRAM RECIEVED PRN FOR GOOD EFFECT. SHE REPOSITIONS SELF IN BED BUT WAS ASSISTED UP IN BED PRN. SHE REMAINS ON 2L O2 VIA NC, RESPS E/U AND SPO2 WNL. PT HAD DRY COUGHING FIT W/ROBITUSSIN PRN PROVIDED FOR GOOD RELIEF. NO ACUTE CHANGES, VSS/AFEBRILE. WILL MONITOR AND REPORT TO DAY RN.
[2018-09-22 05:55] LABS: Mean Corpuscular Volume 94 fL (80-100)
[2018-09-22 06:02] LABS: Bun/Creatinine Ratio 23.5 (12.0-20.0); Calcium, Blood 10.2 mg/dL (8.5-10.1); Creatinine, Blood 1.32 mg/dL (0.40-1.00); Potassium, Blood 4.6 mmol/L (3.5-5.5)
--- NOTE | 2018-09-22 16:05 | NUR ---
PT A/OX3, PLEASANT AND COOPERATIVE, THE PT IS UP WITH 1 ASSIST TO THE CHAIR AND TO THE BATHROOM, THE PT WAS TITRATED OFF OXYGEN TODAY AND APPEARS TO BE BREATHING EASILY AT THIS TIME ON RA SATS ABOVE 90%, THE PT WAS MEDICATED FOR PAIN X1 TODAY, THE PT WAS UP FOR BREAKFAST AND LUNCH AND IS NOW IN BED, CALL LIGHT IN REACH, BED ALARM ON,
--- NOTE | 2018-09-22 17:45 | NUR ---
Spiritual care visit conducted. Patient is known to this administrative underwriter from prior visits. Patient recognized me when I entered her room and asked me to sit down. Patient went through her life recounting the many times "God saved" her life. From childhood to the present, she told of all her near experiences. I pointed out that her same sameer and trust is prenent with in her today and will carry her through her current situation . I provided pastoral director of group counseling program, companionship and prayer. Patient showed signs of an elevated mood and voiced an appreciation for my visit.
--- NOTE | 2018-09-23 05:07 | NUR ---
SHIFT SUMMARY PATIENT HAD NO ACUTE CHANGES OBSERVED THIS SHIFT. AXOX 3 WITH ONE ASSIST. TAKES MEDICATION 1-2 WITH PUDDING. DENIES PAIN, SOB, AND N/V. PIV REMAINS INTACT. VSS/AFEBRILE. STATING 93% ON RA. COOPERATIVE WITH CARE. CALL LIGHT IN REACH. BED IN LOWEST POSITION. WILL CONTINUE TO MONITOR UNTIL DAY SHIFT NURSE ASSUMES CARE.
[2018-09-23 06:05] LABS: Albumin, Blood 2.3 g/dL (3.4-5.0); Anion Gap 7 mmol/L (6-16); Blood Urea Nitrogen 28 mg/dL (8-24); Bun/Creatinine Ratio 23.7 (12.0-20.0); CO2, Blood 27 mmol/L (21-32); Chloride, Blood 103 mmol/L (98-108); Creatinine, Blood 1.18 mg/dL (0.40-1.00); Glomerular Filtration Rate 46 (60-); Glucose, Blood 95 mg/dL (70-99); Potassium, Blood 4.6 mmol/L (3.5-5.5); Sodium, Blood 137 mmol/L (136-145)
[2018-09-23] MEDS ORDERED: BENZ100A PO (13:19)
[2018-09-23] MEDS ORDERED: ASCO500 PO (13:19)
[2018-09-23] MEDS ORDERED: AZIT500 PO (13:20)
[2018-09-23] MEDS ORDERED: CEFU500T30 PO (13:20)
[2018-09-23] MEDS ORDERED: GUAIFENESIN ER600 MG PO (13:21)
[2018-09-23] MEDS ORDERED: Ferrous Sulfat325 M2 PO (13:23)
[2018-09-23] MEDS ORDERED: Isosorbide Mono30 MG PO (13:24)
[2018-09-23] MEDS ORDERED: MELATONIN5 M1 PO (13:25)
[2018-09-23] MEDS ORDERED: ACIDOPHILUS LA1 EACH PO (13:26)
[2018-09-23] MEDS ORDERED: ALBU2.5V5 NEB (13:27)
[2018-09-23] MEDS ORDERED: BUDE.25 NEB (13:27)
--- NOTE | 2018-09-23 15:33 | NUR ---
Spiritual care visit conducted. Patient was in the discharge process when I entered the room. We celebrated her increased strength, I provided companionship and encouraged self care. Patient declared that she has thoroughly enjoyed our visits and expressed gratitude.
--- NOTE | 2018-09-23 15:46 | NUR ---
PATIENT DISCHARGE: PATIENT DISCHARGED/XFR TO HOME HEALTH THIS SHIFT. MEDICATION RECONCILIATION COMPLETED; MED LIST FAXED TO [facility] DISCHARGE EDUCATION COMPLETED WITH PATIENT. PATIENT DEPARTED MEDICAL FLOOR VIA [facility] [employer] WHEEL[facility] AT 1530. PATIENT DEPARTED [facility] VIA [facility].
== END 2018-09-23 15:36 | disposition home health service (06) | DRG 871 ==
LOC: ER 09:56 → MEDS 12:09 → ERHOLD 12:09 → MEDS 16:54 → ENPENDDIS 09-23 12:30 → MEDS 09-23 15:36
PROVIDERS: Emergency Medicine; Internal Medicine; ADMIT Internal Medicine
DX: A41.9 Sepsis, unspecified organism (principal); J18.9 Pneumonia, unspecified organism; J96.20 Acute and chronic respiratory failure, unspecified whether with hypoxia or hypercapnia; J44.0 Chronic obstructive pulmonary disease with (acute) lower respiratory infection; J44.1 Chronic obstructive pulmonary disease with (acute) exacerbation; I50.32 Chronic diastolic (congestive) heart failure; I13.0 Hypertensive heart and chronic kidney disease with heart failure and stage 1 through stage 4 chronic kidney disease, or unspecified chronic kidney disease; N18.3 Chronic kidney disease, stage 3 (moderate); F32.9 Major depressive disorder, single episode, unspecified; D50.9 Iron deficiency anemia, unspecified; D63.1 Anemia in chronic kidney disease; G20 Parkinson's disease; M79.7 Fibromyalgia; G47.33 Obstructive sleep apnea (adult) (pediatric); E87.5 Hyperkalemia; R65.20 Severe sepsis without septic shock; K21.9 Gastro-esophageal reflux disease without esophagitis; Z66 Do not resuscitate; F17.210 Nicotine dependence, cigarettes, uncomplicated; W19.XXXA Unspecified fall, initial encounter; Y92.009 Unspecified place in unspecified non-institutional (private) residence as the place of occurrence of the external cause; M54.9 Dorsalgia, unspecified; Z99.81 Dependence on supplemental oxygen; Z99.3 Dependence on wheelchair; Z88.5 Allergy status to narcotic agent; Z88.8 Allergy status to other drugs, medicaments and biological substances; Z79.899 Other long term (current) drug therapy
CPT/HCPCS: 36415; 71046; 80048; 80053; 80069; 82728; 82947; 83540; 83550; 83605; 84132; 84484; 85025; 85027; 87040; 87070; 87205; 87804; 93005; 93010; 94640; 94760; 96361; 96365; 97162; 97166; 97530; 99285-25; J0610; J0696; J1815; J7030; J7050; J7120

== ENCOUNTER 2019-02-05 15:31 | Emergency (ER) | payer OTHER ==
[~2019-02-05] VITALS: Ht 152.4 cm; Wt 72.1 kg
[~2019-02-05 15:31] MED LIST changes: +**INCOMPLETE MED REC; +ACIDOPHILUS LA1 EACH PO; +ACIDOPHILUS1 EAC2 PO; +ASCO500 PO; +BUDE.25 NEB; +CEFU500T30 PO; +CITA20 PO; +FURO20 PO; +GUAIFENESIN ER600 MG PO; +Isosorbide Mono30 MG PO; +MELATONIN5 M1 PO; +MIRALAX17 GM PO
== END 2019-02-05 18:10 | disposition home or self-care (01) ==
LOC: ER 15:31
DX: T18.128A Food in esophagus causing other injury, initial encounter (principal); I11.0 Hypertensive heart disease with heart failure; I50.9 Heart failure, unspecified; J44.9 Chronic obstructive pulmonary disease, unspecified; F32.9 Major depressive disorder, single episode, unspecified; F17.210 Nicotine dependence, cigarettes, uncomplicated; Z79.899 Other long term (current) drug therapy
CPT/HCPCS: 99283

== ENCOUNTER → 2019-03-17 | Outpatient (CLI) | payer OTHER ==
[~2019-03-17] MED LIST changes: +ACET500 PO; +ALBU90OI INH; +BISA5EC PO; +CENTRUM SPECIA PO; +Citalopram HBr40 MG PO; +DICLOFENAC SOD100 G1 TOP; +DOK100 MG PO; +FLUT1DIS2 INH; +Ferrous Sulfat325 M2 PO; +GABA100 PO; +ISODIN10 PO; +ONDA4ODT PO; +PANT40 PO; +Tessalon Perle100 MG PO; +Toviaz4 MG PO; +VITAMIN D32000 UNIT PO; +XARELTO15 MG PO
== END | disposition home or self-care (01) ==
LOC: LAB SHORT 18:45 → LAB 18:45
DX: N64.89 Other specified disorders of breast (principal); N64.59 Other signs and symptoms in breast
CPT/HCPCS: 87070; 87205

== ENCOUNTER 2019-04-15 11:49 | Observation (INO) | payer OTHER ==
[~2019-04-15] VITALS: Ht 160 cm; Wt 70.3 kg
[~2019-04-15 11:49] MED LIST changes: -ACET500 PO; -ALBU90OI INH; -BISA5EC PO; -CENTRUM SPECIA PO; -Citalopram HBr40 MG PO; -DICLOFENAC SOD100 G1 TOP; -DOK100 MG PO; -FLUT1DIS2 INH; -Ferrous Sulfat325 M2 PO; -GABA100 PO; -ISODIN10 PO; -ONDA4ODT PO; -PANT40 PO; -Tessalon Perle100 MG PO; -Toviaz4 MG PO; -VITAMIN D32000 UNIT PO; -XARELTO15 MG PO
[2019-04-15 13:34] LABS: BASOPHILS ABSOLUTE AUTO 0.06 K/mm3 (0.00-0.23); BASOPHILS PERCENT AUTO 1 % (0-2); EOSINOPHILS PERCENT AUTO 2 % (0-6); Hematocrit 38.7 % (33.0-51.0); Hemoglobin 11.9 g/dL (11.5-16.0); IMMATURE GRAN ABSOLUTE AUTO 0.06 K/mm3 (0.00-0.10); IMMATURE GRAN PERCENT AUTO 1 % (0-1); LYMPHOCYTES ABSOLUTE AUTO 1.79 K/mm3 (0.84-5.20); LYMPHOCYTES PERCENT AUTO 14 % (21-46); MONOCYTES ABSOLUTE AUTO 1.06 K/mm3 (0.16-1.47); MONOCYTES PERCENT AUTO 8 % (4-13); Mean Corpuscular HGB 29.8 pg (26.0-34.0); Mean Corpuscular HGB Conc 30.7 g/dL (31.5-36.5); Mean Corpuscular Volume 97 fL (80-100); Mean Platelet Volume 10.7 fL (9.1-12.4); NEUTROPHILS PERCENT AUTO 74 % (41-73); Platelet Count 263 K/mm3 (150-400); RDW Standard Deviation 49.8 fL (35.1-46.3); White Blood Cell Count 12.67 K/mm3 (4.00-11.30)
[2019-04-15] MEDS ORDERED: TIOT18 INH (14:02)
[2019-04-15] MEDS ORDERED: MIRALAX17 GM PO (14:07)
[2019-04-15 14:14] LABS: Albumin, Blood 3.2 g/dL (3.4-5.0); Albumin/Globulin Ratio 0.9 (0.8-1.8); Bilirubin, Total 0.3 mg/dL (0.1-1.0); Bun/Creatinine Ratio 13.7 (12.0-20.0); Calcium, Blood 9.7 mg/dL (8.5-10.1); Creatinine, Blood 1.24 mg/dL (0.40-1.00); Globulin, Blood 3.7 g/dL (2.2-4.0); Potassium, Blood 4.1 mmol/L (3.5-5.5); Total Protein, Blood 6.9 g/dL (6.4-8.2)
[2019-04-15 14:49] LABS: Source, Urine Clean Catch
[2019-04-15 15:05] LABS: Bilirubin, Urine Neg (Neg); Blood, Urine 1+ (Neg); Glucose Qualitative, Urine Neg (Neg); Ketones, Urine Neg (Neg); Leukocyte Esterase, Urine 3+ (Neg); Nitrite, Urine Pos (Neg); Protein, Urine Neg (Neg); Urobilinogen, Urine NORM (Normal)
[2019-04-15 15:14] LABS: Appearance, Urine Hazy (Clear); Color, Urine Yellow (P-Yellow)
[2019-04-15 15:15] LABS: Bacteria Many /hpf; Red Blood Cells, Urine 0-2 /hpf (0-2); Squamous Epithelial Cells Few /hpf (Few); White Blood Cells, Urine TNTC /hpf (0-5)
[2019-04-15] MEDS ORDERED: Macrobid 100 M100 MG PO (15:39)
--- NOTE | 2019-04-16 04:39 | NUR ---
SHIFT SUMMARY PT ARRIVED TO FLOOR IN NO DISTRESS. PT REFUSED TO DRINK ANY FLUID OR TAKE CIRA MEDS. PT STATES SHE WAS AFRAID TO SWALLOW ANYTHING JUST YET. PT HAS HAD MULTIPLE BM'S AND VOIDS. PT HAD NO ISSUES NOTED. PT CURRENTLY SLEEPING IN NO DISTRESS. CALL LIGHT IN REACH.
[2019-04-16 05:08] LABS: Hematocrit 36.2 % (33.0-51.0); Hemoglobin 11.1 g/dL (11.5-16.0); Mean Corpuscular HGB 30.1 pg (26.0-34.0); Mean Corpuscular HGB Conc 30.7 g/dL (31.5-36.5); Mean Corpuscular Volume 98 fL (80-100); Mean Platelet Volume 10.4 fL (9.1-12.4); Platelet Count 215 K/mm3 (150-400); RDW Coefficient Variation 13.7 % (11.7-14.2); RDW Standard Deviation 48.9 fL (35.1-46.3); Red Blood Cell Count 3.69 M/mm3 (3.80-5.20); White Blood Cell Count 9.14 K/mm3 (4.00-11.30)
[2019-04-16] MEDS ORDERED: NITR100CA PO (11:07)
--- NOTE | 2019-04-16 11:11 | NUR ---
GRANDDAUGHTER ,SARY, NOTIFIED OF D'C AND MED AT [facility] WHICH CLOSES AT 1PM TODAY. STS SHE WILL NOTIFY NIECE TO MEDICAL OR SURGICAL INSTRUMENT MAKER PATIENT.
--- NOTE | 2019-04-16 13:38 | NUR ---
ERICKA CARPIO DISCHARGED PATIENT. REVIEWED D'C WITH 2 ADULT RELATIVES WHO SHOWED UP TO FINANCIAL SERVICES CONSULTANT PATIENT. GRANDDAUGHTER WAS AWARE EARLIER THAT PATIENT HAD MEDS AT [facility] AND THAT PHARMACY CLOSED AT 1300 TODAY. ANSWER ALL QUESTIONS. IN W/C TO POV W/BALAJI.
== END 2019-04-16 13:35 | disposition home or self-care (01) ==
LOC: ER 11:49 → MEDS 11:50 → ENPENDDIS 04-16 11:30 → MEDS 04-16 13:35
PROVIDERS: Emergency Medicine; Internal Medicine Gastroenterology; Physician Assistant; ADMIT Hospitalist
PROC: 0DC38ZZ Extirpation of Matter from Lower Esophagus, Via Natural or Artificial Opening Endoscopic (ICD-10-PCS; principal; 2019-04-15 18:00)
DX: T18.128A Food in esophagus causing other injury, initial encounter (principal); K20.9 Esophagitis, unspecified; K44.9 Diaphragmatic hernia without obstruction or gangrene; N39.0 Urinary tract infection, site not specified; I13.0 Hypertensive heart and chronic kidney disease with heart failure and stage 1 through stage 4 chronic kidney disease, or unspecified chronic kidney disease; N18.3 Chronic kidney disease, stage 3 (moderate); I50.32 Chronic diastolic (congestive) heart failure; K21.9 Gastro-esophageal reflux disease without esophagitis; D50.9 Iron deficiency anemia, unspecified; J44.9 Chronic obstructive pulmonary disease, unspecified; F32.9 Major depressive disorder, single episode, unspecified; G47.33 Obstructive sleep apnea (adult) (pediatric); M79.7 Fibromyalgia; F17.210 Nicotine dependence, cigarettes, uncomplicated; Z86.711 Personal history of pulmonary embolism; Z86.718 Personal history of other venous thrombosis and embolism; Z79.01 Long term (current) use of anticoagulants; Z79.899 Other long term (current) drug therapy; Z99.81 Dependence on supplemental oxygen; Z88.5 Allergy status to narcotic agent; Z88.8 Allergy status to other drugs, medicaments and biological substances; Z88.1 Allergy status to other antibiotic agents; Z99.89 Dependence on other enabling machines and devices
CPT/HCPCS: 36415; 74176; 80053; 81001; 83690; 85025; 85027; 87077; 87086; 87186; 93005; 93010; 94640; 94760; 94762; 96361; 96374; 96375; 99285-25; C9113; G0378; J0696; J2405; J2704; J3010; J7050; J7120

== ENCOUNTER 2019-04-25 11:35 | Emergency (ER) | payer OTHER ==
[~2019-04-25] VITALS: Ht 152.4 cm; Wt 76.2 kg
[2019-04-25 12:16] LABS: BASOPHILS ABSOLUTE AUTO 0.09 K/mm3 (0.00-0.23); BASOPHILS PERCENT AUTO 1 % (0-2); EOSINOPHILS PERCENT AUTO 12 % (0-6); Hematocrit 41.1 % (33.0-51.0); Hemoglobin 12.6 g/dL (11.5-16.0); IMMATURE GRAN ABSOLUTE AUTO 0.06 K/mm3 (0.00-0.10); IMMATURE GRAN PERCENT AUTO 1 % (0-1); LYMPHOCYTES ABSOLUTE AUTO 1.42 K/mm3 (0.84-5.20); LYMPHOCYTES PERCENT AUTO 13 % (21-46); MONOCYTES ABSOLUTE AUTO 0.89 K/mm3 (0.16-1.47); MONOCYTES PERCENT AUTO 8 % (4-13); Mean Corpuscular HGB 29.6 pg (26.0-34.0); Mean Corpuscular HGB Conc 30.7 g/dL (31.5-36.5); Mean Corpuscular Volume 97 fL (80-100); Mean Platelet Volume 10.5 fL (9.1-12.4); NEUTROPHILS ABSOLUTE AUTO 7.45 K/mm3 (1.96-9.15); NEUTROPHILS PERCENT AUTO 67 % (41-73); Platelet Count 353 K/mm3 (150-400); RDW Coefficient Variation 13.7 % (11.7-14.2); RDW Standard Deviation 49.1 fL (35.1-46.3); Red Blood Cell Count 4.26 M/mm3 (3.80-5.20); White Blood Cell Count 11.21 K/mm3 (4.00-11.30)
[2019-04-25 12:34] LABS: Albumin, Blood 3.2 g/dL (3.4-5.0); Albumin/Globulin Ratio 0.7 (0.8-1.8); Bilirubin, Total 0.2 mg/dL (0.1-1.0); Bun/Creatinine Ratio 17.1 (12.0-20.0); Calcium, Blood 9.9 mg/dL (8.5-10.1); Creatinine, Blood 1.4 mg/dL (0.40-1.00); Globulin, Blood 4.3 g/dL (2.2-4.0); Potassium, Blood 4.4 mmol/L (3.5-5.5); Total Protein, Blood 7.5 g/dL (6.4-8.2)
[2019-04-25 14:43] LABS: Source, Urine Clean Catch
[2019-04-25 14:46] LABS: Bilirubin, Urine Neg (Neg); Blood, Urine Neg (Neg); Glucose Qualitative, Urine Neg (Neg); Ketones, Urine Neg (Neg); Leukocyte Esterase, Urine 2+ (Neg); Nitrite, Urine Neg (Neg); Protein, Urine Neg (Neg); Specific Gravity, Urine 1.015 (1.003-1.022); Urobilinogen, Urine NORM (Normal)
[2019-04-25 14:51] LABS: Appearance, Urine Clear (Clear); Color, Urine Yellow (P-Yellow)
[2019-04-25 14:53] LABS: Bacteria Few /hpf; Red Blood Cells, Urine 0-2 /hpf (0-2); Squamous Epithelial Cells Few /hpf (Few)
== END 2019-04-25 16:46 | disposition home or self-care (01) ==
LOC: ER 11:35
PROVIDERS: Emergency Medicine
DX: N39.0 Urinary tract infection, site not specified (principal); F03.90 Unspecified dementia, unspecified severity, without behavioral disturbance, psychotic disturbance, mood disturbance, and anxiety; I11.0 Hypertensive heart disease with heart failure; I50.9 Heart failure, unspecified; F32.9 Major depressive disorder, single episode, unspecified; D64.9 Anemia, unspecified; J44.9 Chronic obstructive pulmonary disease, unspecified; G43.909 Migraine, unspecified, not intractable, without status migrainosus; F17.210 Nicotine dependence, cigarettes, uncomplicated; Z88.5 Allergy status to narcotic agent; Z88.1 Allergy status to other antibiotic agents; Z88.8 Allergy status to other drugs, medicaments and biological substances; Z79.899 Other long term (current) drug therapy; Z79.01 Long term (current) use of anticoagulants
CPT/HCPCS: 36415; 74176; 80053; 81001; 83690; 85025; 87086; 96360; 99284-25; J7030; P9612

== ENCOUNTER 2019-05-11 15:32 | Inpatient (IN) | payer OTHER ==
[~2019-05-11] VITALS: Ht 152.4 cm; Wt 74.8 kg
[2019-05-11 17:01] LABS: Base Excess Venous -1.6 mmol/L; Bicarbonate Venous 22.9 mmol/L (24.0-30.0); PCO2 Venous 43.2 mmHg (38-42); PO2 Venous 59.4 mmHg (38-42); pH Blood Venous 7.35 (7.34-7.37)
[2019-05-11 17:03] LABS: BASOPHILS ABSOLUTE AUTO 0.08 K/mm3 (0.00-0.23); BASOPHILS PERCENT AUTO 0 % (0-2); EOSINOPHILS ABSOLUTE AUTO 0.52 K/mm3 (0.00-0.68); EOSINOPHILS PERCENT AUTO 3 % (0-6); Hematocrit 37.9 % (33.0-51.0); Hemoglobin 11.5 g/dL (11.5-16.0); IMMATURE GRAN ABSOLUTE AUTO 0.14 K/mm3 (0.00-0.10); IMMATURE GRAN PERCENT AUTO 1 % (0-1); LYMPHOCYTES ABSOLUTE AUTO 1.83 K/mm3 (0.84-5.20); LYMPHOCYTES PERCENT AUTO 10 % (21-46); MONOCYTES PERCENT AUTO 9 % (4-13); Mean Corpuscular HGB 29.7 pg (26.0-34.0); Mean Corpuscular HGB Conc 30.3 g/dL (31.5-36.5); Mean Corpuscular Volume 98 fL (80-100); NEUTROPHILS ABSOLUTE AUTO 14.68 K/mm3 (1.96-9.15); NEUTROPHILS PERCENT AUTO 77 % (41-73); Platelet Count 293 K/mm3 (150-400); RDW Coefficient Variation 14.1 % (11.7-14.2); RDW Standard Deviation 51.3 fL (35.1-46.3); Red Blood Cell Count 3.87 M/mm3 (3.80-5.20); White Blood Cell Count 19.05 K/mm3 (4.00-11.30)
[2019-05-11 17:12] LABS: Source, Urine Clean Catch
[2019-05-11 17:14] LABS: Bilirubin, Urine Neg (Neg); Blood, Urine 1+ (Neg); Glucose Qualitative, Urine Neg (Neg); Ketones, Urine Neg (Neg); Leukocyte Esterase, Urine 2+ (Neg); Nitrite, Urine Neg (Neg); Protein, Urine Neg (Neg); Urobilinogen, Urine NORM (Normal)
[2019-05-11 17:19] LABS: Appearance, Urine Clear (Clear); Color, Urine Yellow (P-Yellow)
[2019-05-11 17:21] LABS: Bacteria Rare /hpf; Red Blood Cells, Urine 0-2 /hpf (0-2); Squamous Epithelial Cells Few /hpf (Few); Transitional Epithelial Cells Few /hpf (0-Rare)
[2019-05-11 17:22] LABS: Renal Epithelial Few /hpf (0-Rare)
[2019-05-11 17:25] LABS: Albumin, Blood 2.9 g/dL (3.4-5.0); Albumin/Globulin Ratio 0.6 (0.8-1.8); Bilirubin, Total 0.4 mg/dL (0.1-1.0); Bun/Creatinine Ratio 17.8 (12.0-20.0); Calcium, Blood 10.2 mg/dL (8.5-10.1); Creatinine, Blood 1.35 mg/dL (0.40-1.00); Globulin, Blood 4.7 g/dL (2.2-4.0); Potassium, Blood 4.4 mmol/L (3.5-5.5); Total Protein, Blood 7.6 g/dL (6.4-8.2)
[2019-05-11] MEDS ORDERED: XARELTO15 MG PO (18:17)
[2019-05-11] MEDS ORDERED: Toviaz4 MG PO (18:17)
[2019-05-11] MEDS ORDERED: Citalopram HBr40 MG PO (18:17)
[2019-05-11] MEDS ORDERED: VITAMIN D32000 UNIT PO (18:18)
[2019-05-11] MEDS ORDERED: GABA100 PO (18:18)
[2019-05-11] MEDS ORDERED: TIOT18 INH (18:18)
[2019-05-11] MEDS ORDERED: PANT40 PO (18:18)
[2019-05-11] MEDS ORDERED: TRAM50 PO (18:18)
[2019-05-11] MEDS ORDERED: Ferrous Sulfat325 M2 PO (18:19)
[2019-05-11] MEDS ORDERED: ALBU90OI INH (18:19)
[2019-05-11] MEDS ORDERED: POTCHL20ER PO (18:19)
[2019-05-11] MEDS ORDERED: FURO20 PO (18:19)
[2019-05-11] MEDS ORDERED: METO25ER PO (18:19)
[2019-05-11] MEDS ORDERED: DOK100 MG PO (18:20)
[2019-05-11] MEDS ORDERED: Tessalon Perle100 MG PO (18:20)
[2019-05-11] MEDS ORDERED: FLUT1DIS2 INH (18:20)
[2019-05-11] MEDS ORDERED: DICLOFENAC SOD100 G1 TOP (18:21)
[2019-05-11] MEDS ORDERED: ISODIN10 PO (18:22)
--- NOTE | 2019-05-12 04:11 | NUR ---
SHIFT SUMMARY: PT IS ALERT AND ORIENTED WITH VERY MINOR CONFUSION. PT IS A 1-2 PERSON ASSIST TO THE BSC. PT USES HER CALL LIGHT APPROPRIATELY. PT IS CALM AND COOPERATIVE WITH CARE. PT REPORTS INTERMITTENT SOB, O2 2 L @ NIGHT KEEPING SATS > 90%. PT DENIES PAIN, NAUSEA, AND VOMITING. FLUIDS RUNNING ORDERED. PT MOSTLY CONTINENT, ATTENDS IN PLACE. PT SLEPT INTERMITTENTLY THROUGHOUT THE NIGHT. BED IN LOW POSITION, CALL LIGHT WITHIN REACH. WILL REPORT TO DAY NURSE.
[2019-05-12 05:14] LABS: BASOPHILS ABSOLUTE AUTO 0.06 K/mm3 (0.00-0.23); BASOPHILS PERCENT AUTO 0 % (0-2); EOSINOPHILS ABSOLUTE AUTO 0.33 K/mm3 (0.00-0.68); EOSINOPHILS PERCENT AUTO 2 % (0-6); Hematocrit 34.7 % (33.0-51.0); Hemoglobin 10.9 g/dL (11.5-16.0); IMMATURE GRAN PERCENT AUTO 1 % (0-1); LYMPHOCYTES ABSOLUTE AUTO 1.02 K/mm3 (0.84-5.20); LYMPHOCYTES PERCENT AUTO 7 % (21-46); MONOCYTES ABSOLUTE AUTO 1.47 K/mm3 (0.16-1.47); MONOCYTES PERCENT AUTO 9 % (4-13); Mean Corpuscular HGB Conc 31.4 g/dL (31.5-36.5); Mean Corpuscular Volume 96 fL (80-100); NEUTROPHILS ABSOLUTE AUTO 12.82 K/mm3 (1.96-9.15); NEUTROPHILS PERCENT AUTO 81 % (41-73); Platelet Count 252 K/mm3 (150-400); RDW Standard Deviation 49.2 fL (35.1-46.3); Red Blood Cell Count 3.63 M/mm3 (3.80-5.20)
[2019-05-12 05:51] LABS: Bun/Creatinine Ratio 15.1 (12.0-20.0); Calcium, Blood 9.2 mg/dL (8.5-10.1); Creatinine, Blood 1.19 mg/dL (0.40-1.00); Potassium, Blood 3.7 mmol/L (3.5-5.5)
[2019-05-12] MEDS ORDERED: ACET500 PO (09:25)
[2019-05-12] MEDS ORDERED: CENTRUM SPECIA PO (09:26)
[2019-05-12] MEDS ORDERED: MIRALAX17 GM PO (09:32)
--- NOTE | 2019-05-12 17:28 | NUR ---
SHIFT SUMMARY PT AXO TO SELF AND FOLLOWING DIRECTIONS FORGETFUL AND STATES THAT SHE HAS BEEN "TALKING TO PEOPLE (SHE) KNOWS ISN'T THERE." PT IRRITABLE AND FORGETFUL. COMPLAINS OF HEADACHE AND GENERALIZED PAIN, MEDICATED PER EMAR. PT APPEARS TO BE RESTING COMFORTABLY. IV PATENT AND INFUSING AT TKO. VSS. BED IN LOW POSITION, CALL LIGHT WITHIN REACH, BED ALARM ON.
--- NOTE | 2019-05-13 04:35 | NUR ---
SHIFT SUMMARY NO ACUTE CHANGES TO REPORT OVERNIGHT. PT FORGETFUL, BUT IS EASILY DIRECTED. SHE SETS OFF BED ALARM AND DOES NOT USE CALL LIGHT. IV ABX INFUSED ORDERED THIS SHIFT. POSITIONAL IV TO LEFT JUGULAR. ATTEMPTED TO START ALTERNATE IV ACCESS VIA ULTRASOUND BUT PT REFUSED. PT HAS RESTED ON AND OFF. MEDICATED X1 WITH TYLENOL FOR NECK AND SHOULDER PAIN. ASSESSMENT HAS REMAINED UNCHANGED. WILL CONTINUE TO MONITOR AND REPORT TO ONCOMING RN.
[2019-05-13 04:49] LABS: BASOPHILS ABSOLUTE AUTO 0.05 K/mm3 (0.00-0.23); BASOPHILS PERCENT AUTO 0 % (0-2); EOSINOPHILS ABSOLUTE AUTO 0.44 K/mm3 (0.00-0.68); EOSINOPHILS PERCENT AUTO 4 % (0-6); Hemoglobin 10.3 g/dL (11.5-16.0); IMMATURE GRAN ABSOLUTE AUTO 0.11 K/mm3 (0.00-0.10); IMMATURE GRAN PERCENT AUTO 1 % (0-1); LYMPHOCYTES ABSOLUTE AUTO 0.67 K/mm3 (0.84-5.20); LYMPHOCYTES PERCENT AUTO 6 % (21-46); MONOCYTES ABSOLUTE AUTO 1.15 K/mm3 (0.16-1.47); MONOCYTES PERCENT AUTO 10 % (4-13); Mean Corpuscular HGB 30.2 pg (26.0-34.0); Mean Corpuscular HGB Conc 32.2 g/dL (31.5-36.5); Mean Corpuscular Volume 94 fL (80-100); Mean Platelet Volume 10.7 fL (9.1-12.4); NEUTROPHILS ABSOLUTE AUTO 9.58 K/mm3 (1.96-9.15); NEUTROPHILS PERCENT AUTO 80 % (41-73); Platelet Count 243 K/mm3 (150-400); Red Blood Cell Count 3.41 M/mm3 (3.80-5.20)
[2019-05-13 05:10] LABS: Bun/Creatinine Ratio 12.8 (12.0-20.0); Calcium, Blood 8.8 mg/dL (8.5-10.1); Creatinine, Blood 1.09 mg/dL (0.40-1.00); Potassium, Blood 3.2 mmol/L (3.5-5.5)
[2019-05-13] MEDS ORDERED: AZIT500 PO (11:15)
[2019-05-13] MEDS ORDERED: BISA5EC PO (11:15)
[2019-05-13] MEDS ORDERED: CEFP200 PO (11:16)
[2019-05-13] MEDS ORDERED: ALBU3IS INH (11:17)
[2019-05-13] MEDS ORDERED: ONDA4ODT PO (11:17)
--- NOTE | 2019-05-13 15:40 | NUR ---
discharge summary patient iv removed. pressure held as this was placed in the jugular and the patient was on blood thinners. pressure dressing placed prior to discharge. patient pleasant. wheeled out to the car. instructions given to the patient and her grandson.
== END 2019-05-13 13:09 | disposition home health service (06) | DRG 871 ==
LOC: ER 15:32 → MEDS 19:00 → ENPENDDIS 05-13 10:23 → MEDS 05-13 13:09
PROVIDERS: Family Medicine; Nurse Practitioner Acute Care; Physician Assistant; ADMIT Hospitalist
DX: A41.9 Sepsis, unspecified organism (principal); J18.9 Pneumonia, unspecified organism; J44.1 Chronic obstructive pulmonary disease with (acute) exacerbation; J44.0 Chronic obstructive pulmonary disease with (acute) lower respiratory infection; I13.0 Hypertensive heart and chronic kidney disease with heart failure and stage 1 through stage 4 chronic kidney disease, or unspecified chronic kidney disease; I50.32 Chronic diastolic (congestive) heart failure; E86.0 Dehydration; F01.50 Vascular dementia, unspecified severity, without behavioral disturbance, psychotic disturbance, mood disturbance, and anxiety; F32.9 Major depressive disorder, single episode, unspecified; G20 Parkinson's disease; G47.33 Obstructive sleep apnea (adult) (pediatric); K21.9 Gastro-esophageal reflux disease without esophagitis; N18.3 Chronic kidney disease, stage 3 (moderate); Z66 Do not resuscitate; Z86.718 Personal history of other venous thrombosis and embolism; Z79.01 Long term (current) use of anticoagulants; Z99.81 Dependence on supplemental oxygen; G89.29 Other chronic pain; M54.5 Low back pain; F17.210 Nicotine dependence, cigarettes, uncomplicated
CPT/HCPCS: 36415; 71045; 80048; 80053; 81001; 82803; 83605; 83880; 85025; 87040; 87086; 93005; 93010; 94640; 94760; 94761; 96365; 96367; 97110; 97162; 97530; 99285-25; A9270; J0456; J0696; J7030; J7050

== ENCOUNTER 2019-09-18 03:21 | Emergency (ER) | payer OTHER ==
[~2019-09-18] VITALS: Ht 152.4 cm; Wt 56.7 kg
[~2019-09-18 03:21] MED LIST changes: +ACET500 PO; +ALBU90OI INH; +BISA5EC PO; +CENTRUM SPECIA PO; +Citalopram HBr40 MG PO; +DICLOFENAC SOD100 G1 TOP; +DOK100 MG PO; +FLUT1DIS2 INH; +Ferrous Sulfat325 M2 PO; +GABA100 PO; +ISODIN10 PO; +ONDA4ODT PO; +PANT40 PO; +Tessalon Perle100 MG PO; +Toviaz4 MG PO; +VITAMIN D32000 UNIT PO; +XARELTO15 MG PO
== END 2019-09-18 06:12 | disposition home or self-care (01) ==
LOC: ER 03:21
DX: S70.01XA Contusion of right hip, initial encounter (principal); S40.011A Contusion of right shoulder, initial encounter; I12.9 Hypertensive chronic kidney disease with stage 1 through stage 4 chronic kidney disease, or unspecified chronic kidney disease; N18.3 Chronic kidney disease, stage 3 (moderate); F32.9 Major depressive disorder, single episode, unspecified; J44.9 Chronic obstructive pulmonary disease, unspecified; Z86.718 Personal history of other venous thrombosis and embolism; F17.210 Nicotine dependence, cigarettes, uncomplicated; Z88.5 Allergy status to narcotic agent; Z88.8 Allergy status to other drugs, medicaments and biological substances; Z79.899 Other long term (current) drug therapy; W18.30XA Fall on same level, unspecified, initial encounter
CPT/HCPCS: 73030; 73502

== ENCOUNTER 2019-10-08 18:18 | Inpatient (IN) | payer OTHER ==
[~2019-10-08] VITALS: Ht 157.5 cm; Wt 79.4 kg
[~2019-10-08 18:18] MED LIST changes: -DOK100 MG PO; +FERSU300 PO; -Ferrous Sulfat325 M2 PO; -VITAMIN D32000 UNIT PO; +Vitamin D2000 UNIT PO
[2019-10-08 18:52] LABS: BASOPHILS ABSOLUTE AUTO 0.04 K/mm3 (0.00-0.23); BASOPHILS PERCENT AUTO 0 % (0-2); EOSINOPHILS PERCENT AUTO 2 % (0-6); Hematocrit 38.8 % (33.0-51.0); Hemoglobin 12.1 g/dL (11.5-16.0); IMMATURE GRAN ABSOLUTE AUTO 0.05 K/mm3 (0.00-0.10); IMMATURE GRAN PERCENT AUTO 0 % (0-1); LYMPHOCYTES PERCENT AUTO 13 % (21-46); MONOCYTES ABSOLUTE AUTO 1.38 K/mm3 (0.16-1.47); MONOCYTES PERCENT AUTO 11 % (4-13); Mean Corpuscular HGB 29.8 pg (26.0-34.0); Mean Corpuscular HGB Conc 31.2 g/dL (31.5-36.5); Mean Corpuscular Volume 96 fL (80-100); Mean Platelet Volume 10.9 fL (9.1-12.4); NEUTROPHILS ABSOLUTE AUTO 9.39 K/mm3 (1.96-9.15); NEUTROPHILS PERCENT AUTO 74 % (41-73); Platelet Count 256 K/mm3 (150-400); RDW Coefficient Variation 15.1 % (11.7-14.2); RDW Standard Deviation 53.7 fL (35.1-46.3); Red Blood Cell Count 4.06 M/mm3 (3.80-5.20); White Blood Cell Count 12.76 K/mm3 (4.00-11.30)
[2019-10-08 19:08] LABS: Albumin, Blood 3.3 g/dL (3.4-5.0); Albumin/Globulin Ratio 0.8 (0.8-1.8); Bilirubin, Total 0.4 mg/dL (0.1-1.0); Calcium, Blood 9.5 mg/dL (8.5-10.1); Creatinine, Blood 1.18 mg/dL (0.40-1.00); Globulin, Blood 4.2 g/dL (2.2-4.0); Total Protein, Blood 7.5 g/dL (6.4-8.2)
[2019-10-08 19:38] LABS: Base Excess Venous 3.1 mmol/L; Bicarbonate Venous 26.6 mmol/L (24.0-30.0); PO2 Venous 86.7 mmHg (38-42); pH Blood Venous 7.39 (7.34-7.37)
[2019-10-08 19:54] LABS: Source, Urine Catheter
[2019-10-08 19:59] LABS: Bilirubin, Urine Neg (Neg); Blood, Urine 4+ (Neg); Glucose Qualitative, Urine Neg (Neg); Ketones, Urine Neg (Neg); Leukocyte Esterase, Urine 2+ (Neg); Nitrite, Urine Neg (Neg); Protein, Urine 2+ (Neg); Specific Gravity, Urine 1.015 (1.003-1.022); Urobilinogen, Urine NORM (Normal)
[2019-10-08 20:00] LABS: Appearance, Urine Hazy (Clear); Color, Urine Yellow (P-Yellow)
[2019-10-08 20:08] LABS: Bacteria Many /hpf; Mucus Light (0-Heavy); Squamous Epithelial Cells Few /hpf (Few)
[2019-10-08 20:45] LABS: Influenza A Negative (NEGATIVE); Influenza B Negative (NEGATIVE)
[2019-10-08 23:15] LABS: Adenovirus Not Detected (NOT DETECT); Bordetella pertussis Not Detected (NOT DETECT); Chlamydophila pneumoniae Not Detected (NOT DETECT); Coronavirus 229E Not Detected (NOT DETECT); Coronavirus HKU1 Not Detected (NOT DETECT); Coronavirus NL63 Not Detected (NOT DETECT); Coronavirus OC43 Not Detected (NOT DETECT); Human Metapneumovirus Not Detected (NOT DETECT); Human Rhinovirus/Enterovirus Not Detected (NOT DETECT); Influenza A/2009-H1 Not Detected (NOT DETECT); Influenza A/H1 Not Detected (NOT DETECT); Influenza A/H3 Not Detected (NOT DETECT); Influenza B Not Detected (NOT DETECT); Mycoplasma pneumoniae Not Detected (NOT DETECT); Parainfluenza Virus 1 Not Detected (NOT DETECT); Parainfluenza Virus 2 Not Detected (NOT DETECT); Parainfluenza Virus 3 Not Detected (NOT DETECT); Parainfluenza Virus 4 Not Detected (NOT DETECT); Respiratory Syncytial Virus Detected (NOT DETECT)
--- NOTE | 2019-10-09 03:38 | NUR ---
88 YR OLD FEMALE ADMITTED TO FLOOR FROM THE ED WITH DX OF DYSPNEA DUE TO ACUTE EXACERBATION OF COPD. HX OF SMOKER. ALSO HAD LOW GRADE FEVER, PLACED ON DROPLET PRECAUTIONS UNTIL SPUTUM CX OBTAINED AND TESTED. IVF OF LR INFUSING AT 100 ML/HR PER ME ORDERS. INCONT OF URINE SEVERAL TIMES. LUNG SOUNDS COARSE AND HAS COUGH, BUT UNABLE TO OBTAIN SPUTUM SPECIMEN OF YET. ORIENTED TO USE OF CALL LIGHT. CALL LIGHT IN REACH. CURRENTLY RESTING QUIETLY.
[2019-10-09 05:01] LABS: BASOPHILS ABSOLUTE AUTO 0.01 K/mm3 (0.00-0.23); BASOPHILS PERCENT AUTO 0 % (0-2); EOSINOPHILS PERCENT AUTO 0 % (0-6); Hematocrit 35.9 % (33.0-51.0); Hemoglobin 11.1 g/dL (11.5-16.0); IMMATURE GRAN ABSOLUTE AUTO 0.04 K/mm3 (0.00-0.10); IMMATURE GRAN PERCENT AUTO 0 % (0-1); LYMPHOCYTES ABSOLUTE AUTO 0.32 K/mm3 (0.84-5.20); LYMPHOCYTES PERCENT AUTO 3 % (21-46); MONOCYTES ABSOLUTE AUTO 0.11 K/mm3 (0.16-1.47); MONOCYTES PERCENT AUTO 1 % (4-13); Mean Corpuscular HGB 29.4 pg (26.0-34.0); Mean Corpuscular HGB Conc 30.9 g/dL (31.5-36.5); Mean Corpuscular Volume 95 fL (80-100); Mean Platelet Volume 11.1 fL (9.1-12.4); NEUTROPHILS ABSOLUTE AUTO 9.82 K/mm3 (1.96-9.15); NEUTROPHILS PERCENT AUTO 95 % (41-73); Platelet Count 230 K/mm3 (150-400); RDW Coefficient Variation 15.1 % (11.7-14.2); RDW Standard Deviation 52.8 fL (35.1-46.3); Red Blood Cell Count 3.77 M/mm3 (3.80-5.20)
[2019-10-09 05:28] LABS: Bun/Creatinine Ratio 21.5 (12.0-20.0); Calcium, Blood 9.5 mg/dL (8.5-10.1); Creatinine, Blood 1.21 mg/dL (0.40-1.00); Potassium, Blood 4.3 mmol/L (3.5-5.5)
[2019-10-09 16:31] LABS: Test Name COVID-19
--- NOTE | 2019-10-09 18:18 | NUR ---
SHIFT SUMMARY PATIENT MEDICATED X2 FOR PAIN AND X1 FOR COUGH THIS SHIFT. PATIENT VERY DYSPNEIC WITH ANY ACTIVITY AND ESPECIALLY AFTER COUGHING. PATIENT UP ONE ASSIST TO BSC. PATIENT NAPPING OFF AND ON DURING SHIFT. PATIENT IS IN ENHANCED ISOLATION PRECAUTIONS FOR COVID 19 RULE OUT. CALL LIGHT IN REACH.
--- NOTE | 2019-10-09 22:45 | NUR ---
PT IN DROPLET/ENHANCED ISOLATION PRECAUTIONS. CONGESTED COUGH CONTINUES AND SKIN WARM TO TOUCH, LOW GRADE FEVER OF 99.6 CONTINUES. REPOSITOINED AND CHANGED FOR INCONT OF URINE AND FECES. TESSALON PERLS ADMIN FOR COUGH. HOB ELEVATED 60 DEGREES FOR COMFORT. ALERT AND ORIENTED. CALL LIGHT IN REACH. WILL CONTINUE TO MONITOR.
--- NOTE | 2019-10-10 05:38 | NUR ---
ENHANSED ISOLATION PRECAUTIONS CONTINUE PT TESTS CONTINUE. HAS BEEN RESTING WITH OCCASIONAL COUGHING SPELLS WHICH WOULD AWAKEN HER. HOB ELEVATED AND OZ PER NC CONTINUE. LUNG SOUNDS SOMEWHAT WHEEZE AND CONGESTED. TESSALON PERLS ADMINISTERED, WHICH DECREASED COUGHING EPISODES SOMEWHAT. ANXIETY CONTINUES, BUT PT EASILY CALMED. CALL LIGHT IN REACH. WILL CONTINUE TO MONITOR.
[2019-10-10 05:52] LABS: BASOPHILS ABSOLUTE AUTO 0.03 K/mm3 (0.00-0.23); BASOPHILS PERCENT AUTO 0 % (0-2); EOSINOPHILS PERCENT AUTO 0 % (0-6); Hematocrit 35.2 % (33.0-51.0); Hemoglobin 11.2 g/dL (11.5-16.0); IMMATURE GRAN ABSOLUTE AUTO 0.12 K/mm3 (0.00-0.10); IMMATURE GRAN PERCENT AUTO 1 % (0-1); LYMPHOCYTES ABSOLUTE AUTO 0.53 K/mm3 (0.84-5.20); LYMPHOCYTES PERCENT AUTO 2 % (21-46); MONOCYTES ABSOLUTE AUTO 0.69 K/mm3 (0.16-1.47); MONOCYTES PERCENT AUTO 3 % (4-13); Mean Corpuscular HGB 30.3 pg (26.0-34.0); Mean Corpuscular HGB Conc 31.8 g/dL (31.5-36.5); Mean Corpuscular Volume 95 fL (80-100); Mean Platelet Volume 10.9 fL (9.1-12.4); NEUTROPHILS ABSOLUTE AUTO 21.46 K/mm3 (1.96-9.15); NEUTROPHILS PERCENT AUTO 94 % (41-73); Platelet Count 268 K/mm3 (150-400); RDW Coefficient Variation 15.3 % (11.7-14.2); RDW Standard Deviation 53.2 fL (35.1-46.3); White Blood Cell Count 22.83 K/mm3 (4.00-11.30)
[2019-10-10 06:14] LABS: Anion Gap 6 mmol/L (6-16); Blood Urea Nitrogen 36 mg/dL (8-24); Bun/Creatinine Ratio 27.7 (12.0-20.0); CO2, Blood 29 mmol/L (21-32); Calcium, Blood 9.6 mg/dL (8.5-10.1); Chloride, Blood 103 mmol/L (98-108); Glomerular Filtration Rate 41 (60-); Glucose, Blood 130 mg/dL (70-99); Phosphorus, Blood 2.5 mg/dL (2.5-4.9); Potassium, Blood 4.5 mmol/L (3.5-5.5); Sodium, Blood 138 mmol/L (136-145)
--- NOTE | 2019-10-10 15:10 | NUR ---
Spiritual care visit conducted. Patient is sittingup in bed and alert. Patient immediately tells me about her medical history (patient was somewhat unclear about all her medical issues but she is certain that she has been in the hospital many many times), about her family (including her that ) and about her sameer (including her Sabianism roots). Patient is very pleasant and states that her number one goal is to get out of the hospital and go home. We also talk about and dying and about her concerns about her family. I promise to deliver a message to her daughter who is also a patient in the hospital. I listen empathically, normalize patient's experience, reinforce helpful attitudes and practices and provide grief support, recitation of Bible verses and prayer. Patient responds well and shows signs of an elevated mood. I will continue to remain available to patient and family.
--- NOTE | 2019-10-10 18:10 | NUR ---
PATIENT IS ALERT AND ORIENTED WITH FORGETFULNESS. TELE IS IN PLACE, NS AT 99 BPM. 2L O2 VIA NC. PATIENT BECOMES SOB WITH EXERTION. HER IV IN ON HER LEFT CHEST. R/0 FOR COVID-19. PATIENT'S DAUGHTER IS ALSO HOSPITALIZED. WILL CONTINUE TO MONITOR
--- NOTE | 2019-10-10 20:54 | NUR ---
2053- RAMESH WAS SITTING IN BED, STATES SHE HAD TO USE THE BATHROOM. ASSISTED HER TO BEDSIDE COMMODE 1 ASSIST. SHE VOIDED ESTIMATED 300CC CLEAR YELLOW URINE. ASSISTED HER BACK TO BED, AND REPOSITIONED UP IN BED WITH TROLLEY COACH DRIVER HELP. SHE GOT VERY SOB AND LABORED. IT TOOK HER SEVERAL MINUTES TO RECOVER USING PURSED LIPS AND DEEP BREATHING TO RELAX HER BREATHING. OXYGEN VIA NC. LUNG SOUNDS ARE VERY TIGHT AND DIMINISHED. ENCOURAGED DEEP BREATHING EXERCISES, WILL TALK TO RT ABOUT AN INSPIROMETER AND FLUTTER VALVE FOR HER TO USE. ADMINISTERED MEDS. CALL LIGHT IN REACH.
--- NOTE | 2019-10-11 06:34 | NUR ---
SHIFT SUMMARY: RAMESH HAD A ROUGH NIGHT WITH SEVERAL COUGHING SPELLS, AND LABORED BREATHING AT TIMES. WHEN SHE GETS UP TO THE BSC, IT TAKES HER A VERY LONG TIMES TO RECOVER. SHE BECOMES LABORED AND CAN'T CATCH HER BREATH. OXYGEN SATS HAVE REMAINED IN THE LOW 90'S ON 4 LITERS OF O2. COUGH IS NON-PRODUCTIVE AT THIS TIME. TESSALON PEARLS WERE USED. STERIODS ALSO GIVEN PER ORDERS. SHE HAS REMAINED IN SITTING POSITION TO HELP WITH BREATHING LAYING DOWN MAKES IT WORSE. HEADACHE NOTED GAVE ULTRAM. NO OTHER ACUTE CHANGES TO NOTE THIS SHIFT. WILL REPORT TO DAY SHIFT.
--- NOTE | 2019-10-11 11:46 | NUR ---
Spiritual care visit conducted. Patient is sitting up in bed and alert. Patient tells me that she is not feeling any better and is hopeful that she starts improving soon. Patient tells me about her family unit complications and about her sameer that has brought her through the deep dark places. I affirm that that sameer will bring her through now. Patient asks me to pray for her healing and to bless her family. I gladly provide a prayer and blessing. I also provide companionship, pastoral after school counselor and a calming presence. Patient responds well and shows signs of improved hope. I will continue to remain available to patient and family.
--- NOTE | 2019-10-11 17:17 | NUR ---
PATIENT IS ALERT AND ORIENTED AND COOPERATIVE WITH CARE, CAN BECOME FORGETFULL AND CONFUSED. SHE IS ON 2L O2 VIA NC AT ALL TIMES. SOB WITH EXERTION. 1PA TO THE BSC WITH FWW AND GAIT BELT. IN DROPLET ISOLATION FOR RSV ONLY AT THIS TIME. THE PATIENT'S DAUGHTER IS ALSO ON MEDICAL FLOOR, I HELPED THE PATIENT CALL HER DAUGHTER WITH THE HOSPITAL PHONE THIS AFTERNOON SO THEY COULD TALK. POSSIBLE DISCHARGE ON THURSDAY WITH HH. PATIENT DOES HAVE A CAREGIVER AT HOME 40 HOURS/WEEK. PATIENT'S GRANDDAUGHTER CALLED THE RN TODAY TO SAY SHE IS BACK FROM HER TRIP TO [place], AND SAID IT SOUNDS LIKE THE PATIENT IS BACK TO HER BASELINE. WILL CONTINUE TO MONITOR
--- NOTE | 2019-10-11 19:40 | NUR ---
1940- RAMESH IS ALERT AND ORIENTED TO SELF. DOES NOT REMEMBER ME FROM LAST NIGHT OR REMEMBERS MY NAME. SHE FORGETS EASILY. LUNG SOUNDS ARE VERY COURSE AND BREAKING UP. SHE HAS A VERY HARSH HACKING COUGH BUT NOTHING UP YET. STATES SHE CAN GET SOMETHING OCCATIONALLY. ENCOURAGED DRINKING TO HELP WITH THINNING OF SECREATIONS AND DISCUSSED THE FLUTTER VALVE AND INSPIROMETER, HAD HER DEMENSTRATE USE. ENCOURAGED USE FREQUENTLY TO HELP. WILL CONTINUE TO MONITOR, CALL LIGHT IN REACH.
--- NOTE | 2019-10-12 06:29 | NUR ---
SHIFT SUMMARY: RAMESH HAD A BETTER NIGHT THEN PREVIOUS NIGHT. SHE WAS ABLE TO SLEEP BETTER AND WAS NOT UP COUGHING MOST OF THE NIGHT. SHE STILL IS GETTING SOB WHEN GETTING UP TO BSC, BUT HER RECOVERY TIME IS FASTER. SHE DID HAVE A FEW PERIODS WHERE SHE FELT SHE COULD NOT CATCH HER BREATH BUT SHE JUST NEEDED TO CLEAR HER THROAT. COUGH IS MILDLY PRODUCTIVE WITH THICK SPUTUM SHE STATE. VS WNL SHE DID HAVE HTN THIS AM BUT REPEAT BP WAS WNL. SATS GOOD ON 4 LITERS OF O2 NOT ABLE TO WEAN DOWN ON OXYGEN YET. ENCOURAGE HER TO USE THE IS AND FLUTTER VALVE IN THE ROOM. NO OTHER ACUTE CHANGES OCCURRED. WILL REPORT TO DAY SHIFT. CALL LIGHT IN REACH. ISOLATION STILL IN PLACE FOR RSV.
--- NOTE | 2019-10-12 14:17 | NUR ---
SHE SPENT A LOT OF TIME IN THE CHAIR THIS MORNING. SHE EATS WELL. SHE HAS HAD 1 BAD COUGHING SPELL TODAY WHILE WAS IN THE ROOM. SINCE THAT ENDED SHE HAS BEEN MORE COMFORTABLE. WILL START HER NEW COUGH SYRUP ORDER NEEDED THIS AFTERNOON. IV SITE L BREAST PAINFUL WITH PUSH AND DRIP. I SPOKE WITH MD. IV MEDS ARE BEING CHANGED TO PO. TELE SB/NSR BUT SOUNDED IRREGULAR ON ASSESSMENT.
--- NOTE | 2019-10-12 17:27 | NUR ---
SHE WAS ABLE TO TALK TO HER DAUGHTER ON THE PHONE BEFORE SHE WAS DISCHARGED HOME. RAMESH WAS WISHING SHE COULD GO HOME TOO. TELE IS NSR OR SB HIGH 50'S TO LOW 60'S, THOUGH SHE SOUNDED TACHY ON AM ASSESSMENT. DROPLET ISOLATION CONTINUES FOR RSV. IV SOLUMEDROL AND IV ROCEPHIN WERE DC'D AND PO SUBSTITUTES ORDERED. HIGH DOSE PREDNISONE STARTED. CEFTIN WILL START TONIGHT. SHE HAS BEEN UP TO THE CHAIR 3 TIMES TODAY AND THE BSC MULTIPLE TIMES, ALL WITH 1 ASSIST.
--- NOTE | 2019-10-13 06:47 | NUR ---
SHIFT SUMMARY PT IS AN 88 Y/O FEMALE, ADMITTED FOR COPD EXACERBATION AND RSV. SHE IS A&O X 3, AND A 1PA UP WITH A FWW. VITAL SIGNS STABLE. PT DID REPORT BACK PAIN WITH MOVEMENT, BUT DENIED THE NEED FOR PAIN MEDS. NO COMPLAINTS OF NAUSEA OR SOB. TELE SHOWED NSR IN THE 60S. O2 SATS REMAINED > 90% ON 2L O2 VIA NC. VITAL SIGNS STABLE. NO ACUTE CHANGES IN PT CONDITION NOTED. WILL CONTINUE TO MONITOR AND TREAT PER EMAR UNTIL HAND OFF TO DAY SHIFT RN.
--- NOTE | 2019-10-13 13:06 | NUR ---
SHE SAT IN THE CHAIR FOR BREAKFAST AND ON THE SIDE OF THE BED FOR LUNCH. SHE HAS BEEN UP TO THE BSC A FEW TIMES. SHE IS ALWAYS INCONTINENT SOME FIRST, THEN VOIDS THE REST IN THE BSC. TYLENOL GIVEN X1 FOR VARIED PAIN LOCATIONS. SHE SAYS SHE USES TYLENOL FOR PAIN AT HOME ALSO. PLAN IS FOR DC THIS AFTERNOON OR IN AM.
--- NOTE | 2019-10-13 18:11 | NUR ---
SHE IS TALKING WITH THE PALLIATIVE CARE NURSE RIGHT NOW. ABOUT AN HOUR AGO, SHE RECEIVED TYLENOL FOR GENERAL DISCOMFORTS AND COUGH SYRUP FOR A HARSH COUGH. SHE TOOK A SHORT NAP AFTERWARD. SHE HAD HER TELE DC'D EARLIER TODAY. SHE IS FORGETFUL AND CAN GET ANXIOUS IF SHE FEELS SOB OR SHE IS HURTING TOO MUCH. WHEN SHE IS ANXIOUS OR FRUSTRATED SHE MAKES STATEMENTS LIKE "I JUST WANT TO GO SOMEWHERE AND ". SHE CONTINUES TO BE INCONTINENT. HER U.O. IS GOOD. DROPLET ISOLATION ALSO CONTINUES FOR POSITIVE RSV.
--- NOTE | 2019-10-13 18:20 | NUR ---
Initial Visit: Consult for palliative care to review symptom management and hospice services with pt. Pt has history of COPD, CHF, DVT, vascular dementia. Pt admitted for acute on chronic respiratory failure. She states that she is feeling only slightly better. She feels that cough medications are helping somewhat to ease her symptoms. She has chronic pain at home and this has not been worse. She feels comfortable reporting symptoms to nursing for medication treatment. Reviewed current illness and chronic conditions. She states that she is aware that she isn't very healthy, but she has been unhealthy her entire life. She reports that she isn't sure why she is still alive at this point, but she is enjoying her life at home at this time. She lives with her daughter and they share a caregiver. They have two small pets at home, and she misses her dog. She talks excitedly about her dog, Juanito. She reports that her goal is to live until she is 89. She is excited about her birthday this year, because it means that she has only one more year to go. She would continue to accept medical treatment at the hospital, as she doesn't mind coming here to get better. Initial visit with the purpose of creating a trusting relationship. Pt's statements of continuing medical treatments at the hospital and wanting to live until 89 demonstrates that she is not ready for hospice care. Palliative care to follow up on symptoms in the next couple days, if she is here, and introduce hospice philosophy if appropriate. Will remain available.
--- NOTE | 2019-10-14 05:21 | NUR ---
SHIFT SUMMARY PT HAS HAD NO ACUTE CHANGES THIS SHIFT, NO C/O ANY KIND, PT HAS SLEPT T/O SHIFT EXCEPT WAKING TO VOID SEVERAL TIMES DURING SHIFT, 1 ASSIST TO BSC, PT SLEEPING AT THIS TIME, CALL LIGHT IN REACH, WILL CONT TO MONITOR UNTIL REPORT GIVEN TO DAY RN.
--- NOTE | 2019-10-14 09:20 | NUR ---
PT PLEASANT COOP A/O X3. DIOMEDE. TALKATIVE. DENIES PAIN. H/R REG, NO MURMER NOTED. NO TELE. LUNGS DIM AND LIGHT WHEEZES T/O. ON 2.5 L O2. BASELINE. RESP EASY, UNLABORED. BT X4 LAST BM NOT SURE, MAYBE 2-3 DAYS. VOIDS PER BSC 1 ASST. BED IN LOW POSITION, CALL LITE IN REACH, CALLS APPROP. BED ALARM ON FOR SAFETY
--- NOTE | 2019-10-14 12:48 | NUR ---
Spiritual care visit conducted. Patient immediately tells me that she wants to go home. I ask patient if she is feeling better and she says that she can't tell. I tell her that until she is better it is to her advantage to stay. We talk about her family and her frustrations with her ailments. Patient admits to being in a pity-green party mood. We talk about things to be thankful for and I reminder of the love that her family and God has for her. I provide companionship and prayer. Patient responds well and shows signs of an elevated mood.
[2019-10-14] MEDS ORDERED: CEFU500T30 PO (15:26)
[2019-10-14] MEDS ORDERED: Guaifenesin-Co118 ML PO (15:39)
[2019-10-14] MEDS ORDERED: GUAI600T33 PO (15:40)
[2019-10-14] MEDS ORDERED: Prednisone10 MG PO (15:42)
--- NOTE | 2019-10-14 16:19 | NUR ---
DISCHARGE REVIEWD WITH PT. PACKET HANDED TO PT. SHE STATES HER HOME [facility]ARE [facility] WILL ASSIST. SHE STATES WILL REVIEW WITH THEM WHEN HOME. NO IV. NO TELE. DRESSED BY AIDE. PT OUT DOOR AT 1620. STAPLED RX CODEINE AND GUIFENESEN TO DISCHARGE PAPERWORK
== END 2019-10-14 17:19 | disposition home or self-care (01) | DRG 189 ==
LOC: ER 18:18 → MEDS 22:16
PROVIDERS: Internal Medicine; Physician Assistant; ADMIT Internal Medicine
DX: J96.21 Acute and chronic respiratory failure with hypoxia (principal); I13.0 Hypertensive heart and chronic kidney disease with heart failure and stage 1 through stage 4 chronic kidney disease, or unspecified chronic kidney disease; I50.32 Chronic diastolic (congestive) heart failure; J44.1 Chronic obstructive pulmonary disease with (acute) exacerbation; N18.3 Chronic kidney disease, stage 3 (moderate); Z66 Do not resuscitate; Z86.718 Personal history of other venous thrombosis and embolism; F01.50 Vascular dementia, unspecified severity, without behavioral disturbance, psychotic disturbance, mood disturbance, and anxiety; Z99.81 Dependence on supplemental oxygen; G47.30 Sleep apnea, unspecified; B97.4 Respiratory syncytial virus as the cause of diseases classified elsewhere; Z79.01 Long term (current) use of anticoagulants; M79.7 Fibromyalgia; K21.9 Gastro-esophageal reflux disease without esophagitis; F32.9 Major depressive disorder, single episode, unspecified; F17.210 Nicotine dependence, cigarettes, uncomplicated; G62.9 Polyneuropathy, unspecified
CPT/HCPCS: 0099U; 36415; 71045; 71250; 80048; 80053; 80069; 81001; 82803; 83605; 84145; 85025; 87040; 87077; 87086; 87186; 87804; 93005; 93010; 94640; 94760; 94761; 96365; 96366; 96375; 97110; 97116; 97162; 99285-25; A9270; J0696; J1644; J2930; J3480; J7050; J7120; J7512; P9612; U0001

== ENCOUNTER 2019-12-19 14:51 | Emergency (ER) | payer OTHER ==
[~2019-12-19] VITALS: Ht 162.6 cm; Wt 77.1 kg
[~2019-12-19 14:51] MED LIST changes: +Guaifenesin-Co118 ML PO; +Prednisone10 MG PO
[2019-12-19 15:52] LABS: Source, Urine Catheter
[2019-12-19 15:56] LABS: Bilirubin, Urine Neg (Neg); Blood, Urine 1+ (Neg); Glucose Qualitative, Urine Neg (Neg); Ketones, Urine Neg (Neg); Leukocyte Esterase, Urine 2+ (Neg); Nitrite, Urine Neg (Neg); Protein, Urine Neg (Neg); Specific Gravity, Urine 1.015 (1.003-1.022); Urobilinogen, Urine NORM (Normal)
[2019-12-19 15:58] LABS: BASOPHILS ABSOLUTE AUTO 0.12 K/mm3 (0.00-0.23); BASOPHILS PERCENT AUTO 2 % (0-2); EOSINOPHILS ABSOLUTE AUTO 0.29 K/mm3 (0.00-0.68); EOSINOPHILS PERCENT AUTO 4 % (0-6); Hematocrit 45.5 % (33.0-51.0); Hemoglobin 13.4 g/dL (11.5-16.0); IMMATURE GRAN ABSOLUTE AUTO 0.02 K/mm3 (0.00-0.10); IMMATURE GRAN PERCENT AUTO 0 % (0-1); LYMPHOCYTES ABSOLUTE AUTO 1.88 K/mm3 (0.84-5.20); LYMPHOCYTES PERCENT AUTO 23 % (21-46); MONOCYTES ABSOLUTE AUTO 0.98 K/mm3 (0.16-1.47); MONOCYTES PERCENT AUTO 12 % (4-13); Mean Corpuscular HGB 30.6 pg (26.0-34.0); Mean Corpuscular HGB Conc 29.5 g/dL (31.5-36.5); Mean Corpuscular Volume 104 fL (80-100); Mean Platelet Volume 11.1 fL (9.1-12.4); NEUTROPHILS ABSOLUTE AUTO 4.97 K/mm3 (1.96-9.15); NEUTROPHILS PERCENT AUTO 60 % (41-73); NRBC ABSOLUTE 0.02 K/mm3 (0.00-0.02); NRBC Auto 0.2 /100 WBC (0.0-0.2); Platelet Count 287 K/mm3 (150-400); RDW Coefficient Variation 14.3 % (11.7-14.2); RDW Standard Deviation 55.6 fL (35.1-46.3); Red Blood Cell Count 4.38 M/mm3 (3.80-5.20); White Blood Cell Count 8.26 K/mm3 (4.00-11.30)
[2019-12-19 16:08] LABS: Appearance, Urine Clear (Clear); Color, Urine Yellow (P-Yellow); Red Blood Cells, Urine Not Seen /hpf (0-2); Squamous Epithelial Cells Not Seen /hpf (Few)
[2019-12-19 16:09] LABS: Bacteria Not Seen /hpf; Renal Epithelial Few /hpf (0-Rare)
[2019-12-19 16:21] LABS: Alanine Aminotransfer (ALT/SGP 18 U/L (12-78); Albumin, Blood 3.3 g/dL (3.4-5.0); Albumin/Globulin Ratio 0.9 (0.8-1.8); Alk Phos 82 U/L (50-136); Anion Gap 7 mmol/L (6-16); Aspartate Aminotrans (AST/SGOT 26 U/L (12-37); Bilirubin, Total 0.4 mg/dL (0.1-1.0); Blood Urea Nitrogen 23 mg/dL (8-24); Bun/Creatinine Ratio 17.8 (12.0-20.0); CO2, Blood 24 mmol/L (21-32); Calcium, Blood 9.9 mg/dL (8.5-10.1); Chloride, Blood 105 mmol/L (98-108); Creatinine, Blood 1.29 mg/dL (0.40-1.00); Globulin, Blood 3.5 g/dL (2.2-4.0); Glomerular Filtration Rate 41 (60-); Glucose, Blood 101 mg/dL (70-99); Potassium, Blood 4.7 mmol/L (3.5-5.5); Sodium, Blood 136 mmol/L (136-145); Total Protein, Blood 6.8 g/dL (6.4-8.2); Troponin I <0.015 ng/mL (0.000-0.040)
== END 2019-12-19 18:19 | disposition home or self-care (01) ==
LOC: ER 14:51
PROVIDERS: Emergency Medicine
DX: R53.1 Weakness (principal); R05 Cough; Z20.828 Contact with and (suspected) exposure to other viral communicable diseases; J44.9 Chronic obstructive pulmonary disease, unspecified; I13.0 Hypertensive heart and chronic kidney disease with heart failure and stage 1 through stage 4 chronic kidney disease, or unspecified chronic kidney disease; N18.3 Chronic kidney disease, stage 3 (moderate); I50.32 Chronic diastolic (congestive) heart failure; G47.30 Sleep apnea, unspecified; F32.9 Major depressive disorder, single episode, unspecified; F17.210 Nicotine dependence, cigarettes, uncomplicated; Z88.5 Allergy status to narcotic agent; Z88.1 Allergy status to other antibiotic agents; Z88.8 Allergy status to other drugs, medicaments and biological substances; Z79.899 Other long term (current) drug therapy; Z79.2 Long term (current) use of antibiotics
CPT/HCPCS: 36415; 71045; 80053; 81001; 84484; 85025; 87086; 93005; 93010; 96360; 99285-25; J7030; U0002

== ENCOUNTER → 2020-01-30 | Outpatient (CLI) | payer OTHER ==
[~2020-01-30] MED LIST changes: +DOXYCYCLINE HY200 M1 PO
[2020-01-30 18:17] LABS: Source, Urine Voided
[2020-01-30 20:05] LABS: Appearance, Urine Hazy (Clear); Bilirubin, Urine Neg (Neg); Blood, Urine 2+ (Neg); Color, Urine Yellow (P-Yellow); Glucose Qualitative, Urine Neg (Neg); Ketones, Urine Neg (Neg); Leukocyte Esterase, Urine 3+ (Neg); Nitrite, Urine Pos (Neg); Protein, Urine 2+ (Neg); Urobilinogen, Urine NORM (Normal)
[2020-01-30 20:18] LABS: Squamous Epithelial Cells Rare /hpf (Few); White Blood Cells, Urine TNTC /hpf (0-5)
[2020-01-30 20:19] LABS: Bacteria Mod /hpf; Calcium Oxalate Crystals Few /hpf
== END | disposition home or self-care (01) ==
LOC: LAB 18:15 → LAB SHORT 18:15
PROVIDERS: Nurse Practitioner Primary Care
DX: R41.0 Disorientation, unspecified (principal); R30.9 Painful micturition, unspecified
CPT/HCPCS: 81001; 87077; 87086; 87186

== ENCOUNTER 2020-02-12 11:55 | Emergency (ER) | payer OTHER ==
[~2020-02-12] VITALS: Ht 152.4 cm; Wt 72.6 kg
[~2020-02-12 11:55] MED LIST changes: -DOXYCYCLINE HY200 M1 PO
[2020-02-12 12:34] LABS: BASOPHILS ABSOLUTE AUTO 0.03 K/mm3 (0.00-0.23); BASOPHILS PERCENT AUTO 0 % (0-2); EOSINOPHILS PERCENT AUTO 3 % (0-6); Hematocrit 38.6 % (33.0-51.0); Hemoglobin 12.1 g/dL (11.5-16.0); IMMATURE GRAN ABSOLUTE AUTO 0.01 K/mm3 (0.00-0.10); IMMATURE GRAN PERCENT AUTO 0 % (0-1); LYMPHOCYTES ABSOLUTE AUTO 1.44 K/mm3 (0.84-5.20); LYMPHOCYTES PERCENT AUTO 21 % (21-46); MONOCYTES ABSOLUTE AUTO 0.83 K/mm3 (0.16-1.47); MONOCYTES PERCENT AUTO 12 % (4-13); Mean Corpuscular HGB 29.7 pg (26.0-34.0); Mean Corpuscular HGB Conc 31.3 g/dL (31.5-36.5); Mean Corpuscular Volume 95 fL (80-100); NEUTROPHILS ABSOLUTE AUTO 4.47 K/mm3 (1.96-9.15); NEUTROPHILS PERCENT AUTO 64 % (41-73); Platelet Count 209 K/mm3 (150-400); RDW Coefficient Variation 13.8 % (11.7-14.2); RDW Standard Deviation 48.4 fL (35.1-46.3); Red Blood Cell Count 4.08 M/mm3 (3.80-5.20); White Blood Cell Count 6.98 K/mm3 (4.00-11.30)
[2020-02-12 12:53] LABS: Alanine Aminotransfer (ALT/SGP 22 U/L (12-78); Albumin, Blood 3.2 g/dL (3.4-5.0); Alk Phos 63 U/L (50-136); Anion Gap 4 mmol/L (6-16); Aspartate Aminotrans (AST/SGOT 25 U/L (12-37); Bilirubin, Total 0.2 mg/dL (0.1-1.0); Blood Urea Nitrogen 22 mg/dL (8-24); Bun/Creatinine Ratio 17.5 (12.0-20.0); CO2, Blood 29 mmol/L (21-32); Calcium, Blood 9.8 mg/dL (8.5-10.1); Chloride, Blood 107 mmol/L (98-108); Creatinine, Blood 1.26 mg/dL (0.40-1.00); Globulin, Blood 3.1 g/dL (2.2-4.0); Glomerular Filtration Rate 42 (60-); Glucose, Blood 94 mg/dL (70-99); Potassium, Blood 4.9 mmol/L (3.5-5.5); Sodium, Blood 140 mmol/L (136-145); Total Protein, Blood 6.3 g/dL (6.4-8.2)
[2020-02-12 12:54] LABS: Troponin I <0.015 ng/mL (0.000-0.040)
[2020-02-12] MEDS ORDERED: DOXYCYCLINE HY200 M1 PO (13:27)
== END 2020-02-12 14:44 | disposition home or self-care (01) ==
LOC: ER 11:55
PROVIDERS: Emergency Medicine
DX: J44.9 Chronic obstructive pulmonary disease, unspecified (principal); I11.0 Hypertensive heart disease with heart failure; I50.9 Heart failure, unspecified; F32.9 Major depressive disorder, single episode, unspecified; D64.9 Anemia, unspecified; F17.210 Nicotine dependence, cigarettes, uncomplicated; Z88.5 Allergy status to narcotic agent; Z88.1 Allergy status to other antibiotic agents; Z88.8 Allergy status to other drugs, medicaments and biological substances; Z79.899 Other long term (current) drug therapy
CPT/HCPCS: 71046; 80053; 83880; 84484; 85025; 93005; 93010; 99284-25

== ENCOUNTER → 2020-03-01 | Outpatient (CLI) | payer OTHER ==
[~2020-03-01] MED LIST changes: +DOXYCYCLINE HY200 M1 PO
== END | disposition home or self-care (01) ==
LOC: LAB 13:27 → LAB SHORT 13:27
DX: N30.90 Cystitis, unspecified without hematuria (principal)
CPT/HCPCS: 87077; 87086; 87186

== ENCOUNTER 2020-03-09 00:35 | Day surgery (SDC) | payer OTHER ==
--- NOTE | 2020-03-09 18:22 | NUR ---
1505: NOT ABLE TO PLACE IV. PT DOES NOT TOLERATE THIS PROCEDURE VERT WELL. GABRIELA Bauer RN TO ACCESS VEIN.
--- NOTE | 2020-03-09 18:25 | NUR ---
CALL TO [employer]LE-CAREGIVER ABOUT WEEKEND SCHEDULE. EXPLAINED TO HER THAT THE PT WOULD NOT LET US GIVE HER AN IV. SCREAMED AT RN MULTIPLE TIMES TO STOP POKING HER WITH NEEDLES. THE MEDICATION WAS CHANGED TO INTRAMUSCULAR MIXED WITH LIDOCAINE. THE MEDICATION WAS GIVEN IN 2 SHOTS. 2 RNS GAVE SHOT AT THE SAME TIME. PT DISCHARGED TO WAIT FOR RIDE BY FRONT DOOR.
== END 2020-03-09 17:14 | disposition home or self-care (01) ==
LOC: ATC 00:35
DX: N39.0 Urinary tract infection, site not specified (principal); E86.0 Dehydration
CPT/HCPCS: 96372; J0713

== ENCOUNTER 2020-03-10 00:21 | Day surgery (SDC) | payer OTHER | END 2020-03-10 14:05 | disposition home or self-care (01) | LOC: ATC 00:21 | DX: N39.0 Urinary tract infection, site not specified (principal); E86.0 Dehydration | CPT/HCPCS: 96372; J0713 ==

== ENCOUNTER 2020-03-11 00:03 | Day surgery (SDC) | payer OTHER | END 2020-03-11 14:35 | disposition home or self-care (01) | LOC: ATC 00:03 | DX: N39.0 Urinary tract infection, site not specified (principal); E86.0 Dehydration | CPT/HCPCS: 96372; J0713 ==

== ENCOUNTER 2020-03-12 00:18 | Day surgery (SDC) | payer OTHER | END 2020-03-12 14:12 | disposition home or self-care (01) | LOC: ATC 00:18 | DX: N39.0 Urinary tract infection, site not specified (principal); B96.5 Pseudomonas (aeruginosa) (mallei) (pseudomallei) as the cause of diseases classified elsewhere; E86.0 Dehydration; J44.9 Chronic obstructive pulmonary disease, unspecified; I13.0 Hypertensive heart and chronic kidney disease with heart failure and stage 1 through stage 4 chronic kidney disease, or unspecified chronic kidney disease; I50.32 Chronic diastolic (congestive) heart failure; N18.3 Chronic kidney disease, stage 3 (moderate); F32.9 Major depressive disorder, single episode, unspecified; F03.90 Unspecified dementia, unspecified severity, without behavioral disturbance, psychotic disturbance, mood disturbance, and anxiety; F17.210 Nicotine dependence, cigarettes, uncomplicated; Z79.01 Long term (current) use of anticoagulants; Z79.899 Other long term (current) drug therapy | CPT/HCPCS: 96372; J0713 ==

== ENCOUNTER 2020-03-13 00:38 | Day surgery (SDC) | payer OTHER | END 2020-03-13 14:27 | disposition home or self-care (01) | LOC: ATC 00:38 | DX: N39.0 Urinary tract infection, site not specified (principal); B96.5 Pseudomonas (aeruginosa) (mallei) (pseudomallei) as the cause of diseases classified elsewhere; I13.0 Hypertensive heart and chronic kidney disease with heart failure and stage 1 through stage 4 chronic kidney disease, or unspecified chronic kidney disease; I50.32 Chronic diastolic (congestive) heart failure; N18.3 Chronic kidney disease, stage 3 (moderate); E86.0 Dehydration; F03.90 Unspecified dementia, unspecified severity, without behavioral disturbance, psychotic disturbance, mood disturbance, and anxiety; J44.9 Chronic obstructive pulmonary disease, unspecified; F32.9 Major depressive disorder, single episode, unspecified; Z79.01 Long term (current) use of anticoagulants; K21.9 Gastro-esophageal reflux disease without esophagitis; F17.210 Nicotine dependence, cigarettes, uncomplicated; Z88.5 Allergy status to narcotic agent; Z88.8 Allergy status to other drugs, medicaments and biological substances; Z79.899 Other long term (current) drug therapy | CPT/HCPCS: 96372; J0713 ==

== ENCOUNTER 2020-03-14 00:26 | Day surgery (SDC) | payer OTHER | END 2020-03-14 14:06 | disposition home or self-care (01) | LOC: ATC 00:26 | DX: N39.0 Urinary tract infection, site not specified (principal); B96.5 Pseudomonas (aeruginosa) (mallei) (pseudomallei) as the cause of diseases classified elsewhere; E86.0 Dehydration; F03.90 Unspecified dementia, unspecified severity, without behavioral disturbance, psychotic disturbance, mood disturbance, and anxiety; E66.01 Morbid (severe) obesity due to excess calories; J44.9 Chronic obstructive pulmonary disease, unspecified; I13.0 Hypertensive heart and chronic kidney disease with heart failure and stage 1 through stage 4 chronic kidney disease, or unspecified chronic kidney disease; I50.32 Chronic diastolic (congestive) heart failure; N18.3 Chronic kidney disease, stage 3 (moderate); D63.1 Anemia in chronic kidney disease; Z66 Do not resuscitate; F17.210 Nicotine dependence, cigarettes, uncomplicated; Z68.35 Body mass index [BMI] 35.0-35.9, adult; Z88.5 Allergy status to narcotic agent; Z88.8 Allergy status to other drugs, medicaments and biological substances; Z79.01 Long term (current) use of anticoagulants; Z79.899 Other long term (current) drug therapy | CPT/HCPCS: 96372; J0713 ==

== ENCOUNTER 2020-03-17 16:45 | Observation (INO) | payer OTHER ==
[~2020-03-17] VITALS: Ht 167.6 cm; Wt 72.5 kg
[2020-03-17 18:59] LABS: BASOPHILS ABSOLUTE AUTO 0.05 K/mm3 (0.00-0.23); BASOPHILS PERCENT AUTO 1 % (0-2); EOSINOPHILS ABSOLUTE AUTO 0.24 K/mm3 (0.00-0.68); EOSINOPHILS PERCENT AUTO 3 % (0-6); Hematocrit 39.9 % (33.0-51.0); Hemoglobin 12.5 g/dL (11.5-16.0); IMMATURE GRAN ABSOLUTE AUTO 0.03 K/mm3 (0.00-0.10); IMMATURE GRAN PERCENT AUTO 0 % (0-1); LYMPHOCYTES ABSOLUTE AUTO 1.82 K/mm3 (0.84-5.20); LYMPHOCYTES PERCENT AUTO 20 % (21-46); MONOCYTES ABSOLUTE AUTO 0.97 K/mm3 (0.16-1.47); MONOCYTES PERCENT AUTO 10 % (4-13); Mean Corpuscular HGB 29.8 pg (26.0-34.0); Mean Corpuscular HGB Conc 31.3 g/dL (31.5-36.5); Mean Corpuscular Volume 95 fL (80-100); Mean Platelet Volume 11.4 fL (9.1-12.4); NEUTROPHILS ABSOLUTE AUTO 6.22 K/mm3 (1.96-9.15); NEUTROPHILS PERCENT AUTO 67 % (41-73); Platelet Count 221 K/mm3 (150-400); RDW Coefficient Variation 14.5 % (11.7-14.2); RDW Standard Deviation 50.2 fL (35.1-46.3); White Blood Cell Count 9.33 K/mm3 (4.00-11.30)
[2020-03-17 19:20] LABS: Albumin, Blood 3.2 g/dL (3.4-5.0); Albumin/Globulin Ratio 0.9 (0.8-1.8); Bilirubin, Total 0.3 mg/dL (0.1-1.0); Bun/Creatinine Ratio 18.7 (12.0-20.0); Calcium, Blood 10.8 mg/dL (8.5-10.1); Creatinine, Blood 1.34 mg/dL (0.40-1.00); Globulin, Blood 3.6 g/dL (2.2-4.0); Potassium, Blood 4.7 mmol/L (3.5-5.5); Total Protein, Blood 6.8 g/dL (6.4-8.2)
--- NOTE | 2020-03-18 00:15 | NUR ---
ARRIVAL TO UNIT PT ARRIVED TO UNIT FROM ER VIA [facility] AT APPROX 1005. PT REPORTED PAIN WITH MOVEMENT, PAIN SUBSIDED ONCE SHE RESTED IN BED AND SHE BEGAN FALLING ASLEEP. PT FALLS ASLEEP WHILE TALKING BUT ANSWERS QUESTIONS APPROPRIATLY. A LITTLE FORGETFUL AT TIMES BUT AA0X4. SPLINT INTACT CDI. PT REPORTS COMPLETE SENSATION IN FOOT. PT NPO PER ORDERS. FLUIDS INFUSING. EDUCATED TO CALL LIGHT PT ABLE TO USE. PT ATTEMPTING TO USE BED ALBERTO.
[2020-03-18 01:18] LABS: Source, Urine Catheter
[2020-03-18 01:23] LABS: Bilirubin, Urine Neg (Neg); Blood, Urine Neg (Neg); Glucose Qualitative, Urine Neg (Neg); Ketones, Urine Neg (Neg); Leukocyte Esterase, Urine Neg (Neg); Nitrite, Urine Neg (Neg); Protein, Urine Neg (Neg); Urobilinogen, Urine NORM (Normal)
[2020-03-18 01:24] LABS: Appearance, Urine Clear (Clear); Color, Urine Pale Yellow (P-Yellow)
[2020-03-18 04:19] LABS: BASOPHILS ABSOLUTE AUTO 0.06 K/mm3 (0.00-0.23); BASOPHILS PERCENT AUTO 1 % (0-2); EOSINOPHILS ABSOLUTE AUTO 0.17 K/mm3 (0.00-0.68); EOSINOPHILS PERCENT AUTO 2 % (0-6); Hematocrit 39.3 % (33.0-51.0); IMMATURE GRAN ABSOLUTE AUTO 0.03 K/mm3 (0.00-0.10); IMMATURE GRAN PERCENT AUTO 0 % (0-1); LYMPHOCYTES ABSOLUTE AUTO 1.27 K/mm3 (0.84-5.20); LYMPHOCYTES PERCENT AUTO 14 % (21-46); MONOCYTES ABSOLUTE AUTO 1.13 K/mm3 (0.16-1.47); MONOCYTES PERCENT AUTO 13 % (4-13); Mean Corpuscular HGB 29.4 pg (26.0-34.0); Mean Corpuscular HGB Conc 30.5 g/dL (31.5-36.5); Mean Corpuscular Volume 96 fL (80-100); Mean Platelet Volume 11.2 fL (9.1-12.4); NEUTROPHILS ABSOLUTE AUTO 6.34 K/mm3 (1.96-9.15); NEUTROPHILS PERCENT AUTO 70 % (41-73); Platelet Count 198 K/mm3 (150-400); RDW Coefficient Variation 14.5 % (11.7-14.2); RDW Standard Deviation 51.5 fL (35.1-46.3); Red Blood Cell Count 4.08 M/mm3 (3.80-5.20)
[2020-03-18 04:41] LABS: Albumin, Blood 3.3 g/dL (3.4-5.0); Albumin/Globulin Ratio 1.1 (0.8-1.8); Bilirubin, Total 0.5 mg/dL (0.1-1.0); Bun/Creatinine Ratio 17.8 (12.0-20.0); Calcium, Blood 10.4 mg/dL (8.5-10.1); Creatinine, Blood 1.52 mg/dL (0.40-1.00); Potassium, Blood 4.4 mmol/L (3.5-5.5); Total Protein, Blood 6.3 g/dL (6.4-8.2)
--- NOTE | 2020-03-18 05:21 | NUR ---
SHIFT SUMMARY PT AA0X4, NO ACUTE CHANGES SINCE ARRIVAL TO UNIT, PAIN TOLERABLE, PT SLEEPING AND DENIES NEEDING PAIN MEDICATION. PT ROLLS WITH ASSISTANCE. MADDOX PLACED FOR RETENTION, PT TOLERATED WELL. PATENT AND DRAINING. NPO SINCE MIDNIGHT PER ORDERS. PT VERY PLEASANT BUT OCCASIONALLY FORGETFUL. PLAN IS FOR CONSULT THIS AM.
--- NOTE | 2020-03-18 16:24 | NUR ---
Shift summary No acute changes this shift. Patient to be NPO at midnight for reassessment by podiatry/possible surgery tomorrow. Telemetry discontinued per hospitalist. Patient has been alert and cooperative with care. Baker catheter patent and draining yellow urine. Call light within patient reach.
--- NOTE | 2020-03-19 06:10 | NUR ---
SHIFT SUMMARY LYING IN HIGH FOWLERS WITH EYES OPEN WHILE WATCHING TV. AAO X3, INTERMITTEN CONFUSION NOTED. HAS BEEN NPO SINCE [place] FOR POSS SX TODAY WITH DR. CAGE. DENIES FURTHER NEEDS OR WANTS AT THIS TIME. SAFETY MEASURES IN PLACE. WILL CONTINUE TO MONITOR AND GIVE HAND OFF TO ONCOMING SHIFT USING SBAR DURING BEDSIDE REPORT.
--- NOTE | 2020-03-19 12:16 | NUR ---
Patient is sitting up in bed and alert. Patient tells me that she has broken her leg but she doesn't know how, that she has had surgery but her white board says, "No surgery ... therapy and pain management." Patient is able to tell me about her family, her sameer in God and her concern about going into a SNF. I listen empathically, normalize patient's experience and provide companionship and prayer. Patient responds well and shows signs of improved peace. I will continue to assist patient in dealing with her fears and family unit complications.
--- NOTE | 2020-03-19 18:06 | NUR ---
SHIFT SUMMARY PT HAS BEEN VERY FORGETFUL BUT PLEASANT. TAN ABDUL'D & VOIDING. R LEG ELEVATED ON PILLOW T/O SHIFT. THERAPY INTO SEE PT BUT NOT VERY PRODUCTIVE.
--- NOTE | 2020-03-20 03:53 | NUR ---
[employer] SUMMARY patient very angry and agitated in the evening last night. Unconvinced taht she couldn't stand up, Antony was quite upset when she was placed on the bedpan. She did have a large brownish formed large stool with urine mixed in. Patient would not hold still to get blood Pressure and was straining against us. Consequently, pressures were notably high. Patient admitted she was very painful and agreed to take Roxycodone per emar, but then refused rechecks of BP. Patient slept after HS, waking only to get repositioned. Right ankle remained elevated overnight
--- NOTE | 2020-03-20 12:37 | NUR ---
Patient is more confused today than yesterday. She is having trouble coming up with words and the word she says is not a word. She is unsure of where she is, what is happening with her plan of care and is even forgetting the names of her family members (names that she knew yesterday). Patient still has her sense of humor intact and still remembers that serving Adonay is the most important thing to her. Patient mostly spends our time telling and retelling the bezaar events of her night. I provide therapeutic listening, companionship and prayer. Patient responds well and shows signs of feeling more secure and safe.
--- NOTE | 2020-03-20 16:55 | NUR ---
SHIFT SUMMARY PT APPEARS TO BE MORE COMFORTABLE TODAY. SAME LEVEL OF CONFUSION YESTERDAY. FORGETS SHE IS IN THE HOSPITAL IN THE AFTERNOONS AND GETS UPSET WHEN SHE IS REORIENTED, SAME YESTERDAY AFTERNOON. REPORTS WANTING TO GO HOME. DAUGHTER CALLS TO CHECK IN ON HER. WAS A LITTLE BIT MORE INTERACTIVE WITH THERAPIES TODAY. EATING/DRINKING/VOIDING WELL.
--- NOTE | 2020-03-21 06:22 | NUR ---
SHIFT SUMMARY: NO ACUTE EVENTS OVERNIGHT. INCONTINENT OF BLADDER AT TIMES, ATTENDS IN PLACE. SOFT-SPLINT TO RLE. PT DOES NOT USE CALL LIGHT, INSTEAD YELLS DOWN THE HALLWAY. TOLERATING PO INTAKE WELL. SHE REPORTED IMPROVEMENT OF HER PAIN WITH THE OXYCODONE. SHE IS LYING IN BED WITH THE CALL LIGHT IN REACH, WILL REPORT TO DAY SHIFT RN.
--- NOTE | 2020-03-21 12:43 | NUR ---
Patient is sitting out in the hallway and has coloring materials in front of her. Patient immediately tells me about the pain in her ankle, about how much she is missing her family and about her confusion about what is happening with her interms of a plan of care. Patient is able to hang on to her sense of humor and her love for God. I provide therapeutic listening, companionship and prayer. Patient responds well and shows signs of an elevated mood. I will continue to attempt to keep patient's spirits up by reminding her of who she is and the things/people that she cares about.
--- NOTE | 2020-03-21 17:06 | NUR ---
PT D/C TO SNF, SHE IS ALERT, VSS, RESP UNLABORED. PT TRANSPORTED VIA EMS. REPORT WAS CALLED TO NURSE AT THE FACILITY. BELONGINGS WERE SENT WITH THE PT. HER DAUGHTER HAS BEEN NOTIFIED OF TRANSPORT.
== END 2020-03-21 16:52 ==
LOC: ER 16:45 → SURS 16:46 → ER 21:12 → SURS 22:33
PROVIDERS: Physician Assistant; ADMIT Internal Medicine
DX: S82.851A Displaced trimalleolar fracture of right lower leg, initial encounter for closed fracture (principal); W18.30XA Fall on same level, unspecified, initial encounter; F03.90 Unspecified dementia, unspecified severity, without behavioral disturbance, psychotic disturbance, mood disturbance, and anxiety; N17.9 Acute kidney failure, unspecified; I13.0 Hypertensive heart and chronic kidney disease with heart failure and stage 1 through stage 4 chronic kidney disease, or unspecified chronic kidney disease; N18.3 Chronic kidney disease, stage 3 (moderate); I50.32 Chronic diastolic (congestive) heart failure; J44.9 Chronic obstructive pulmonary disease, unspecified; Z20.828 Contact with and (suspected) exposure to other viral communicable diseases; M19.90 Unspecified osteoarthritis, unspecified site; I45.10 Unspecified right bundle-branch block; Z86.718 Personal history of other venous thrombosis and embolism; Z79.01 Long term (current) use of anticoagulants; M79.7 Fibromyalgia; K21.9 Gastro-esophageal reflux disease without esophagitis; D63.1 Anemia in chronic kidney disease; F17.210 Nicotine dependence, cigarettes, uncomplicated; Z88.5 Allergy status to narcotic agent; Z88.8 Allergy status to other drugs, medicaments and biological substances; Z88.1 Allergy status to other antibiotic agents; Z79.899 Other long term (current) drug therapy
CPT/HCPCS: 36415; 71045; 73560-RT; 73600; 80053; 81003; 83880; 85025; 93005; 93010; 94762; 96374-59; 97110; 97161; 97166; 97530; 99152; 99285-25; A9270; G0378; J2704; J3010; J7030; U0002

== ENCOUNTER → 2020-08-13 | Outpatient (CLI) | payer OTHER ==
[~2020-08-13] MED LIST changes: +ADVAIR HFA 230-28 GM INH; +AMOCLA875 PO; +Acetaminophen325 M1 PO; +CEPH250A PO; +FUROSEMIDE40 MG PO; +MAGCIT300 PO; +METR500 PO; +POTA20LUD PO; +VISBIOME 112.51 EACH PO; +Zithromax200 MG/5 M PO
[2020-08-13 12:37] LABS: Hematocrit 42.4 % (33.0-51.0); Hemoglobin 13.1 g/dL (11.5-16.0); Mean Corpuscular HGB 28.2 pg (26.0-34.0); Mean Corpuscular HGB Conc 30.9 g/dL (31.5-36.5); Mean Corpuscular Volume 91 fL (80-100); Mean Platelet Volume 12.1 fL (9.1-12.4); Platelet Count 296 K/mm3 (150-400); RDW Coefficient Variation 14.8 % (11.7-14.2); RDW Standard Deviation 49.8 fL (35.1-46.3); Red Blood Cell Count 4.64 M/mm3 (3.80-5.20); White Blood Cell Count 7.61 K/mm3 (4.00-11.30)
[2020-08-13 12:48] LABS: Creatinine, Blood 1.3 mg/dL (0.40-1.00); Potassium, Blood 3.3 mmol/L (3.5-5.5)
== END | disposition home or self-care (01) ==
LOC: LAB UVN 10:00 → EDSTATUS 13:15
PROVIDERS: Nurse Practitioner Adult Health
DX: I13.0 Hypertensive heart and chronic kidney disease with heart failure and stage 1 through stage 4 chronic kidney disease, or unspecified chronic kidney disease (principal); N18.30 Chronic kidney disease, stage 3 unspecified; I50.32 Chronic diastolic (congestive) heart failure; D63.1 Anemia in chronic kidney disease
CPT/HCPCS: 80048; 85027

== ENCOUNTER → 2020-09-12 | Outpatient (CLI) | payer OTHER ==
[2020-09-12 19:49] LABS: Bun/Creatinine Ratio 16.2 (12.0-20.0); Calcium, Blood 9.2 mg/dL (8.5-10.1); Creatinine, Blood 1.11 mg/dL (0.40-1.00); Potassium, Blood 3.4 mmol/L (3.5-5.5)
== END | disposition home or self-care (01) ==
LOC: EDSTATUS 13:27 → LAB UVN 17:43
PROVIDERS: Nurse Practitioner Adult Health
DX: R79.89 Other specified abnormal findings of blood chemistry (principal)
CPT/HCPCS: 80048

== ENCOUNTER 2020-09-26 12:44 | Emergency (ER) | payer OTHER ==
[~2020-09-26] VITALS: Ht 152.4 cm; Wt 65.3 kg
[~2020-09-26 12:44] MED LIST changes: -ADVAIR HFA 230-28 GM INH; -AMOCLA875 PO; -Acetaminophen325 M1 PO; -CEPH250A PO; -FUROSEMIDE40 MG PO; -MAGCIT300 PO; -METR500 PO; -POTA20LUD PO; -VISBIOME 112.51 EACH PO; -Zithromax200 MG/5 M PO
[2020-09-26 13:58] LABS: BASOPHILS ABSOLUTE AUTO 0.06 K/mm3 (0.00-0.23); BASOPHILS PERCENT AUTO 1 % (0-2); EOSINOPHILS ABSOLUTE AUTO 0.14 K/mm3 (0.00-0.68); EOSINOPHILS PERCENT AUTO 1 % (0-6); Hematocrit 43.8 % (33.0-51.0); Hemoglobin 13.4 g/dL (11.5-16.0); IMMATURE GRAN ABSOLUTE AUTO 0.04 K/mm3 (0.00-0.10); IMMATURE GRAN PERCENT AUTO 0 % (0-1); LYMPHOCYTES ABSOLUTE AUTO 1.07 K/mm3 (0.84-5.20); LYMPHOCYTES PERCENT AUTO 11 % (21-46); MONOCYTES ABSOLUTE AUTO 0.78 K/mm3 (0.16-1.47); MONOCYTES PERCENT AUTO 8 % (4-13); Mean Corpuscular HGB 27.8 pg (26.0-34.0); Mean Corpuscular HGB Conc 30.6 g/dL (31.5-36.5); Mean Corpuscular Volume 91 fL (80-100); Mean Platelet Volume 10.2 fL (9.1-12.4); NEUTROPHILS ABSOLUTE AUTO 7.57 K/mm3 (1.96-9.15); NEUTROPHILS PERCENT AUTO 78 % (41-73); Platelet Count 333 K/mm3 (150-400); RDW Coefficient Variation 14.7 % (11.7-14.2); RDW Standard Deviation 49.6 fL (35.1-46.3); Red Blood Cell Count 4.82 M/mm3 (3.80-5.20); White Blood Cell Count 9.66 K/mm3 (4.00-11.30)
[2020-09-26 14:14] LABS: Albumin, Blood 2.8 g/dL (3.4-5.0); Albumin/Globulin Ratio 0.8 (0.8-1.8); Bilirubin, Total 0.6 mg/dL (0.1-1.0); Bun/Creatinine Ratio 18.3 (12.0-20.0); Calcium, Blood 8.9 mg/dL (8.5-10.1); Creatinine, Blood 1.2 mg/dL (0.40-1.00); Globulin, Blood 3.6 g/dL (2.2-4.0); Potassium, Blood 3.7 mmol/L (3.5-5.5); Total Protein, Blood 6.4 g/dL (6.4-8.2)
[2020-09-26] MEDS ORDERED: AMOCLA875 PO (14:24)
[2020-09-26] MEDS ORDERED: MAGCIT300 PO (14:24)
[2020-12-25] MEDS ORDERED: POTA20LUD PO (15:03)
[2020-12-25] MEDS ORDERED: FUROSEMIDE40 MG PO (15:04)
[2020-12-25] MEDS ORDERED: ADVAIR HFA 230-28 GM INH (15:04)
[2020-12-25] MEDS ORDERED: TIOT18 INH (15:06)
[2020-12-27] MEDS ORDERED: Acetaminophen325 M1 PO (12:28)
[2020-12-27] MEDS ORDERED: CEPH250A PO (12:30)
[2020-12-27] MEDS ORDERED: VISBIOME 112.51 EACH PO (12:30)
[2020-12-27] MEDS ORDERED: METR500 PO (12:31)
== END 2020-09-26 16:18 | disposition home or self-care (01) ==
LOC: ER 12:44
PROVIDERS: Emergency Medicine
DX: K57.32 Diverticulitis of large intestine without perforation or abscess without bleeding (principal); K59.00 Constipation, unspecified; I13.0 Hypertensive heart and chronic kidney disease with heart failure and stage 1 through stage 4 chronic kidney disease, or unspecified chronic kidney disease; I50.32 Chronic diastolic (congestive) heart failure; N18.30 Chronic kidney disease, stage 3 unspecified; J44.9 Chronic obstructive pulmonary disease, unspecified; K21.9 Gastro-esophageal reflux disease without esophagitis; F17.210 Nicotine dependence, cigarettes, uncomplicated; Z88.5 Allergy status to narcotic agent; Z88.8 Allergy status to other drugs, medicaments and biological substances; Z88.1 Allergy status to other antibiotic agents
CPT/HCPCS: 74176; 80053; 83690; 85025; 96374; 99284-25; A9270; J3010

== ENCOUNTER → 2020-10-18 | Outpatient (CLI) | payer OTHER ==
[~2020-10-18] MED LIST changes: +ADVAIR HFA 230-28 GM INH; +AMOCLA875 PO; +Acetaminophen325 M1 PO; +CEPH250A PO; +FUROSEMIDE40 MG PO; +MAGCIT300 PO; +METR500 PO; +POTA20LUD PO; +VISBIOME 112.51 EACH PO; +Zithromax200 MG/5 M PO
== END | disposition home or self-care (01) ==
LOC: LAB SHORT 18:36 → LAB 18:36
DX: R30.9 Painful micturition, unspecified (principal)
CPT/HCPCS: 87077; 87086; 87186

== ENCOUNTER → 2020-11-08 | Outpatient (CLI) | payer OTHER ==
[~2020-11-08] MED LIST changes: -ADVAIR HFA 230-28 GM INH; -Acetaminophen325 M1 PO; -CEPH250A PO; -FUROSEMIDE40 MG PO; -METR500 PO; -POTA20LUD PO; -VISBIOME 112.51 EACH PO; -Zithromax200 MG/5 M PO
[2020-11-08 13:47] LABS: Hematocrit 43.1 % (33.0-51.0); Hemoglobin 13.4 g/dL (11.5-16.0); Mean Corpuscular HGB 27.9 pg (26.0-34.0); Mean Corpuscular HGB Conc 31.1 g/dL (31.5-36.5); Mean Corpuscular Volume 90 fL (80-100); Mean Platelet Volume 11.8 fL (9.1-12.4); Platelet Count 295 K/mm3 (150-400); RDW Standard Deviation 49.5 fL (35.1-46.3)
[2020-11-08 14:07] LABS: Albumin/Globulin Ratio 0.7 (0.8-1.8); Bilirubin, Total 0.6 mg/dL (0.1-1.0); Bun/Creatinine Ratio 17.8 (12.0-20.0); Calcium, Blood 9.6 mg/dL (8.5-10.1); Creatinine, Blood 1.18 mg/dL (0.40-1.00); Globulin, Blood 4.2 g/dL (2.2-4.0); Phosphorus, Blood 2.4 mg/dL (2.5-4.9); Potassium, Blood 4.4 mmol/L (3.5-5.5); Total Protein, Blood 7.2 g/dL (6.4-8.2)
[2020-11-08 14:42] LABS: BASOPHILS ABSOLUTE MAN 0.08 K/mm3 (0.00-0.23); BASOPHILS PERCENT MAN 1 % (0-2); EOSINOPHILS ABSOLUTE MAN 0.32 K/mm3 (0.00-0.68); EOSINOPHILS PERCENT MAN 4 % (0-6); LYMPHOCYTES ABSOLUTE MAN 1.05 K/mm3 (0.84-5.20); LYMPHOCYTES PERCENT MAN 13 % (21-46); MONOCYTES ABSOLUTE MAN 0.81 K/mm3 (0.16-1.47); MONOCYTES PERCENT MAN 10 % (4-13); NEUTROPHILS ABSOLUTE MAN 5.83 K/mm3 (1.96-9.15); SEG NEUTROPHILS PERCENT MAN 72 % (41-73); TOTAL CELLS COUNTED 100
[2020-11-08 17:45] LABS: Bilirubin, Urine Neg (Neg); Blood, Urine 1+ (Neg); Glucose Qualitative, Urine Neg (Neg); Ketones, Urine Neg (Neg); Leukocyte Esterase, Urine 3+ (Neg); Nitrite, Urine Neg (Neg); Protein, Urine 2+ (Neg); Urobilinogen, Urine NORM (Normal)
[2020-11-08 18:17] LABS: Appearance, Urine Hazy (Clear); Color, Urine Pale Yellow (P-Yellow)
[2020-11-08 18:18] LABS: Bacteria Many /hpf; Hyaline Casts 0-2 /lpf (0-2); Red Blood Cells, Urine 0-2 /hpf (0-2); Squamous Epithelial Cells Few /hpf (Few); White Blood Cells, Urine 25-50 /hpf (0-5)
== END | disposition home or self-care (01) ==
LOC: LAB SHORT 12:39 → LAB 12:39 → EDSTATUS 13:15
PROVIDERS: Nurse Practitioner
DX: N30.00 Acute cystitis without hematuria (principal); E87.6 Hypokalemia
CPT/HCPCS: 36415; 80053; 81001; 84100; 85007; 85027; 87077; 87086; 87186

== ENCOUNTER 2020-11-19 12:02 | Emergency (ER) | payer OTHER ==
[~2020-11-19] VITALS: Ht 152.4 cm; Wt 74.8 kg
[2020-11-19 13:16] LABS: BASOPHILS ABSOLUTE AUTO 0.06 K/mm3 (0.00-0.23); BASOPHILS PERCENT AUTO 1 % (0-2); EOSINOPHILS ABSOLUTE AUTO 0.34 K/mm3 (0.00-0.68); EOSINOPHILS PERCENT AUTO 3 % (0-6); Hematocrit 44.8 % (33.0-51.0); Hemoglobin 13.9 g/dL (11.5-16.0); IMMATURE GRAN ABSOLUTE AUTO 0.03 K/mm3 (0.00-0.10); IMMATURE GRAN PERCENT AUTO 0 % (0-1); LYMPHOCYTES ABSOLUTE AUTO 0.85 K/mm3 (0.84-5.20); LYMPHOCYTES PERCENT AUTO 8 % (21-46); MONOCYTES ABSOLUTE AUTO 1.26 K/mm3 (0.16-1.47); MONOCYTES PERCENT AUTO 11 % (4-13); Mean Corpuscular HGB 27.5 pg (26.0-34.0); Mean Corpuscular Volume 89 fL (80-100); Mean Platelet Volume 11.2 fL (9.1-12.4); NEUTROPHILS ABSOLUTE AUTO 8.85 K/mm3 (1.96-9.15); NEUTROPHILS PERCENT AUTO 78 % (41-73); Platelet Count 363 K/mm3 (150-400); RDW Coefficient Variation 14.9 % (11.7-14.2); RDW Standard Deviation 48.7 fL (35.1-46.3); Red Blood Cell Count 5.05 M/mm3 (3.80-5.20); White Blood Cell Count 11.39 K/mm3 (4.00-11.30)
[2020-11-19 13:36] LABS: Alanine Aminotransfer (ALT/SGP 24 U/L (12-78); Albumin, Blood 3.2 g/dL (3.4-5.0); Albumin/Globulin Ratio 0.7 (0.8-1.8); Alk Phos 132 U/L (50-136); Anion Gap 2 mmol/L (6-16); Aspartate Aminotrans (AST/SGOT 29 U/L (12-37); Bilirubin, Total 0.3 mg/dL (0.1-1.0); Blood Urea Nitrogen 30 mg/dL (8-24); Bun/Creatinine Ratio 25.9 (12.0-20.0); CO2, Blood 30 mmol/L (21-32); Calcium, Blood 10.1 mg/dL (8.5-10.1); Chloride, Blood 103 mmol/L (98-108); Creatinine, Blood 1.16 mg/dL (0.40-1.00); Globulin, Blood 4.6 g/dL (2.2-4.0); Glomerular Filtration Rate 47 (60-); Glucose, Blood 99 mg/dL (70-99); Potassium, Blood 4.6 mmol/L (3.5-5.5); Sodium, Blood 135 mmol/L (136-145); Total Protein, Blood 7.8 g/dL (6.4-8.2); Troponin I <0.015 ng/mL (0.000-0.040)
[2020-11-19 15:32] LABS: Source, Urine Catheter
[2020-11-19 15:37] LABS: Bilirubin, Urine Neg (Neg); Blood, Urine Neg (Neg); Glucose Qualitative, Urine Neg (Neg); Ketones, Urine Neg (Neg); Leukocyte Esterase, Urine 1+ (Neg); Nitrite, Urine Neg (Neg); Protein, Urine 1+ (Neg); Specific Gravity, Urine 1.015 (1.003-1.022); Urobilinogen, Urine NORM (Normal)
[2020-11-19] MEDS ORDERED: Zithromax200 MG/5 M PO (16:32)
[2020-11-19] MEDS ORDERED: BENZ100A PO (16:32)
[2020-11-19 16:42] LABS: Appearance, Urine Hazy (Clear); Color, Urine Pale Yellow (P-Yellow)
[2020-11-19 16:43] LABS: Red Blood Cells, Urine 0-2 /hpf (0-2); Squamous Epithelial Cells Many /hpf (Few)
[2020-11-19 16:44] LABS: Bacteria Few /hpf
== END 2020-11-19 17:11 | disposition home or self-care (01) ==
LOC: ER 12:02
PROVIDERS: Physician Assistant
DX: R05 Cough (principal); J44.9 Chronic obstructive pulmonary disease, unspecified; I12.9 Hypertensive chronic kidney disease with stage 1 through stage 4 chronic kidney disease, or unspecified chronic kidney disease; I25.2 Old myocardial infarction; N18.30 Chronic kidney disease, stage 3 unspecified; F17.210 Nicotine dependence, cigarettes, uncomplicated; Z88.5 Allergy status to narcotic agent; Z88.8 Allergy status to other drugs, medicaments and biological substances; Z88.1 Allergy status to other antibiotic agents; Z79.899 Other long term (current) drug therapy; Z79.01 Long term (current) use of anticoagulants
CPT/HCPCS: 36415; 71045; 80053; 81001; 83690; 84484; 85025; 87077; 87086; 87186; 93005; 93010; 99285-25; A9270